=== PATIENT | male | born 1945 | race Caucasian/White ===

== ENCOUNTER 2020-02-24 10:01 | Outpatient (CLI) | payer MEDICARE, MEDICAID, SELFPAY ==
[2020-02-24 10:39] LABS: Hematocrit 44.2 % (42.0-52.0); Hemoglobin 15.4 g/dL (14.0-18.0)
[2020-02-24 11:19] LABS: Free T4 Free Thyroxine 1.13 ng/mL (0.78-2.19)
[2020-02-28 13:59] LABS: Testosterone Free 69.1 pg/mL (30.0-135.0); Testosterone Total 832 ng/dL (250-1100)
== END 2020-02-24 10:02 | disposition home or self-care (01) ==
PROVIDERS: PCP Family Medicine; Visit Provider Internal Medicine Endocrinology, Diabetes & Metabolism
DX: E03.9 Hypothyroidism, unspecified (principal); R10.9 Unspecified abdominal pain; R14.0 Abdominal distension (gaseous); E04.9 Nontoxic goiter, unspecified
CPT/HCPCS: 36415; 84402; 84403; 84439; 84443; 84481; 85014; 85018

== ENCOUNTER 2021-03-18 11:20 | Outpatient (CLI) | payer MEDICARE, MEDICAID, SELFPAY ==
[2021-03-22 16:09] LABS: Testosterone Free 58.5 pg/mL (6.0-73.0); Testosterone Total 862 ng/dL (250-1100)
== END 2021-03-18 11:21 | disposition home or self-care (01) ==
LOC: ANHWCLAB 11:26
PROVIDERS: PCP Family Medicine; Visit Provider Internal Medicine Endocrinology, Diabetes & Metabolism
DX: E03.9 Hypothyroidism, unspecified (principal)
CPT/HCPCS: 36415; 84402; 84403; 84443

== ENCOUNTER 2021-10-05 11:30 | Outpatient (CLI) | payer MEDICARE, MEDICAID, SELFPAY ==
[2021-10-05 13:07] LABS: Hematocrit 43.2 % (42.0-52.0); Hemoglobin 14.4 g/dL (14.0-18.0)
[2021-10-05 13:24] LABS: Free T4 Free Thyroxine 1.63 ng/mL (0.78-2.19)
[2021-10-05 13:38] LABS: Prostate Specific Antigen 0.7 ng/mL (< OR = 4.0)
[2021-10-10 11:49] LABS: Testosterone Free 33.5 pg/mL (6.0-73.0); Testosterone Total 480 ng/dL (250-1100)
== END 2021-10-05 11:31 | disposition home or self-care (01) ==
PROVIDERS: PCP Family Medicine; Visit Provider Internal Medicine Endocrinology, Diabetes & Metabolism
DX: E29.1 Testicular hypofunction (principal); E03.9 Hypothyroidism, unspecified; Z12.5 Encounter for screening for malignant neoplasm of prostate
CPT/HCPCS: 36415; 84153; 84402; 84403; 84439; 84443; 85014; 85018; G0103

== ENCOUNTER 2022-07-30 20:34 | Observation (INO) | payer MEDICARE, MEDICAID, SELFPAY ==
[2022-07-30] VITALS (12 sets, daily range): BP systolic 125–149; BP diastolic 62–76; PULSE 68–97; RESP 13–21; TEMP 36.8; O2SAT 96–100
--- NOTE | ~2022-07-30 | CT_ITS ---
EXAMINATION: CTA brain carotid DATE: 07/31/2022 01:05 INDICATION: Pulsatile tinnitus. TECHNIQUE: Computed tomographic angiography (CTA) of the head was performed without and with 100 mL O mnipaque-350 intravenous contrast. CTA of the neck was performed with intravenous contrast. Automated exposure control and iterative reconstruction technique were employed. The dose-length product was 1 693.58 mGy-cm. Maximum intensity projection and volume rendered 3D-reconstructions were created by lisa bateman technologist on a separate workstation. COMPARISON: Brain MRI 10/24/2016 FINDINGS: HEAD CTA: There are scattered areas of low attenuation in the cerebral white matter. There is no intr acranial hemorrhage, acute infarction, or abnormal intracranial mass lesion. The ventricles are edi l in size. There is mild mucosal thickening in the paranasal sinuses. The mastoid air cells are edi l. The orbits are normal. The vertebral arteries are codominant. There is no significant stenosis of basilar artery or the posterior cerebral arteries. There is no significant stenosis of the intracrani al internal carotid arteries or anterior or middle cerebral arteries. Anterior communicating artery i s normal. The posterior communicating arteries are normal. There is no aneurysm. NECK CTA: The lungs demonstrate septal thickening and airspace and groundglass opacities bilaterally. There is no significant stenosis of the vertebral arteries. There is plaque in the proximal internal carotid arteries. There is undulation of the al of right internal carotid artery, consistent with fibromuscular dysplasia. There is 0% stenosis of the proximal right internal carotid artery relative to normal distal artery lumen diameter (NASCET criteria). There is 0% stenosis of the proximal left internal carotid artery relative to normal distal artery lumen diameter. There is severe cervical spo ndylosis. IMPRESSION: 1. Moderate nonspecific cerebral white matter disease, which likely represents chronic small vessel i schemic disease. 2. No aneurysm or significant intracranial internal stenosis. 3. 0% stenosis of the proximal internal carotid arteries relative to normal distal artery lumen diame ters (NASCET criteria). 4. Diffuse lung disease in the visualized portions of the lung apices, consistent with pulmonary nate a versus pneumonia. Reviewed, dictated and finalized at location A. TING MACHINE OPERATOR IMPRESSION: 1. Moderate nonspecific cerebral white matter disease, which likely represents chronic small vessel ischemic disease. 2. No aneurysm or significant intracranial internal stenosis. 3. 0% stenosis of the proximal internal carotid arteries relative to normal dis valarie artery lumen diameters (NASCET criteria). 4. Diffuse lung disease in the visualized portions of the lung apices, consiste nt with pulmonary edema versus pneumonia.
--- NOTE | ~2022-07-30 | XR_ITS ---
EXAMINATION: XR chest 1V portable Exam Date/Time: 07/30/2022 22:54 LITERARY AGENT HISTORY: palpitations Comparison: None available. RESULT: Lines, tubes, and devices: None. Lungs and pleura: Increased diffuse reticular opacities, overlying chronic senescent and/or intersti tial change. Cardiomediastinal silhouette: Stable. Other: No acute osseous or upper abdominal finding. IMPRESSION: Worsening reticular/interstitial opacities may be related to interstitial edema or atypical infection . Reviewed, dictated and finalized at location K. RARY AGENT IMPRESSION: Worsening reticular/interstitial opacities may be related to interstitial edema or atypical infection.
--- NOTE | 2022-07-30 22:52 | ECG_ITS ---
Measurements Intervals [place] Rate: 72 P: 13 VA: 190 QRS: -5 QRSD: 91 T: 7 QT: 396 QTc: 436 Interpretive Statements SINUS RHYTHM EARLY PRECORDIAL R/S TRANSITION VOLTAGE CRITERIA FOR LVH BORDERLINE ECG COMPARED TO ECG 02/05/2019 09:48:31 NO SIGNIFICANT CHANGES Electronically Signed On 07-31-2022 9:10:35 OWNER MANAGER by Raj Gomez D.O.
--- NOTE | 2022-07-30 22:54 | ED.EAR ---
HPI - Ear Problem General Chief complaint: Ear Stated complaint: right ear pain Time Seen by Provider: 07/30/22 22:39 History of Present Illness HPI Narrative: Patient is a 76-year-old male with a history of hypertension, hypothyroidism, hyperlipidemia presenting with pulsatile tinnitus. Patient states that for the last several weeks he has had episodes of pulsatile tinnitus that have been happening more frequently. States that tonight the pounding was stronger than ever and his heart was racing so he came in for evaluation. He denies chest pain, shortness of breath, lightheadedness, numbness or weakness, speech changes, ambulatory difficulties. No headache, fevers, cough, abdominal pain, nausea or vomiting, leg swelling. Related Data Home Medications Medication Instructions Recorded Confirmed aspirin 81 mg tablet,delayed 81 mg PO DAILY 08/21/19 07/31/22 release (Adult Aspirin Regimen) metoprolol succinate 25 mg 25 mg PO BID 08/21/19 07/31/22 tablet,extended release 24 hr atorvastatin 10 mg tablet 40 mg PO DAILY 02/24/20 07/31/22 olmesartan 40 1 tablet PO DAILY 07/31/22 07/31/22 mg-hydrochlorothiazide 25 mg tablet Allergies Allergy/AdvReac Type Severity Reaction Status Date / Time erythromycin base Allergy Unknown rapid Verified 07/30/22 22:17 heartbeat epinephrine Allergy Heart rythm Verified 07/30/22 22:17 Review of Systems Review of Systems: All systems reviewed & are unremarkable except as noted in HPI and below PMFSH Past Medical History Medical History HLD (hyperlipidemia) HTN (hypertension) Hypogonadism Hypothyroidism (acquired) Pulsatile tinnitus Sinusitis Family History Family History Other Carcinoma of colon Cerebrovascular accident Diabetes mellitus Family history of arthritis Family history of blood dyscrasia Family history of cardiovascular disease Family history of congestive heart failure Family history of glaucoma Family history of lung disease Hypertension Social History Social History (Updated 07/31/22 @ 14:03 by ROSSANA Lambert) Social History: Patient currently lives by himself. Patient has no kids or pets at this time. He elects his me share old to be his surrogate and he wishes to be a full code at this time Smoking status: Never smoker Alcohol intake: never Substance use: never Lack of Transportation: No Lack of Food: Never True Current Housing: I Have Housing Concerned About Future Housing: No Difficulty Paying Gas/Electric Bills: No Difficulty Paying for Meds: No Currently Unemployed: No Education: High School Diploma/GED Difficulty w/ Childcare or Family Care: No Living arrangements: alone Occupation/Education: retired Additional occupation/education comments: [employer] Gender identity (if verbalized by the patient): Male Sexual Orientation (if Verbalized by the Patient): Straight or Heterosexual Spiritual care concerns: No Agree to blood products: Yes Exam Narrative: GENERAL: Well-appearing, well-nourished, and in no acute distress. HEAD: Normocephalic, atraumatic. EYES: PERRLA and EOMI. ENT: Nares clear, no rhinorrhea or epistaxis. Mucous membranes moist. Ears are unremarkable NECK: Supple. CHEST: Clear to auscultation. No respiratory distress. HEART: Regular rate and rhythm. No murmur heard. Normal peripheral pulses. ABDOMEN: Soft, nontender, nondistended, normal active bowel sounds. EXTREMITIES: Normal range of motion. No edema. SKIN: Warm, dry, no rash. NEURO: No focal deficits. Alert and oriented x3. PSYCH: Normal mood and affect. Course Vital Signs Vital signs: Vital Signs Temperature 98.3 F 07/30/22 20:37 Pulse Rate 97 07/30/22 20:37 Respiratory Rate 16 07/30/22 20:37 Blood Pressure 149/76 H 07/30/22 20:37 Pulse Oximetry 98 07/30/22 20:37 Temperat
--- NOTE | 2022-07-30 23:00 | PC.NURSE ---
Report received from ROMINA Guerra. Assumed care of patient at this time.
[2022-07-30 23:06] LABS: Basophils Absolute Auto 0.1 K/mm3 (0.0-0.1); Basophils Percent Auto 0.6 % (0.2-1.2); Eosinophils Absolute Auto 0.1 K/mm3 (0-0.3); Eosinophils Percent Auto 1.5 % (0-4.4); Hematocrit 40.4 % (42.0-52.0); Hemoglobin 14.1 g/dL (14.0-18.0); Immature Granulocyte Absolute 0.02 K/mm3 (0.00-0.031); Immature Granulocyte Percent A 0.2 % (0-0.5); Lymphocytes Absolute Auto 1.41 K/mm3 (0.9-3.2); Lymphocytes Percent Auto 16.6 % (18.3-44.2); Mean Corpuscular HGB Conc 34.9 g/dl (32-36); Mean Corpuscular Hemoglobin 32.6 pg (26-34); Mean Corpuscular Volume 93.5 fl (80-100); Mean Platelet Volume 10.4 fl (7.4-10.4); Monocytes Percent Auto 11.2 % (2.6-8.5); Neutrophils Absolute Auto 5.9 K/mm3 (1.3-6.7); Neutrophils Percent Auto 69.9 % (45.5-73.1); Platelet Count Result 221 k/mm3 (150-375); Red Blood Count 4.32 M/mm3 (4.6-6.20); Red Cell Distribution Width 11.6 % (11.5-14.5); White Blood Count 8.5 K/mm3 (4.5-10.0)
[2022-07-30 23:15] LABS: Alanine Aminotransferase 37 U/L (6-50); Albumin Level 4.6 g/dL (3.5-5.1); Alkaline Phosphatase 55 U/L (38-126); Anion Gap 11 mmol/L (8-16); Aspartate Amino Transferase 40 U/L (17-59); Blood Urea Nitrogen 37 mg/dL (9-20); Calcium 8.7 mg/dL (8.4-10.2); Carbon Dioxide 27 mmol/L (22-30); Chloride 103 mmol/L (98-107); Estimated CRCL calculation 41 ml/min; Estimated Glomerular Filt Rate 53; Glucose 109 mg/dL (65-110); Potassium 4.1 mmol/L (3.4-5.0); Sodium 141 mmol/L (137-145)
[2022-07-30 23:27] LABS: Troponin I 0.016 ng/mL (0.000-0.034)
[2022-07-31] VITALS (48 sets, daily range): BP systolic 114–145; BP diastolic 62–87; PULSE 58–82; RESP 12–26; TEMP 36.6–36.7; O2SAT 94–100; BMI 30.4
[2022-07-31] MEDS: SODIUM CHLORIDE 0.9% IV 1,000 ML 999 ML IV CONT (00:52)
[2022-07-31 05:52] LABS: Troponin I 0.022 ng/mL (0.000-0.034)
[2022-07-31 07:04] LABS: CRP < 0.5 mg/dL (<1.0)
[2022-07-31 07:21] LABS: Erythrocyte Sedimentation Rate 32 mm/hr (0-20)
[2022-07-31 07:22] LABS: Influenza A QL RT-PCR Negative (Negative); Influenza B QL RT-PCR Negative (Negative); SARS-CoV-2 RNA PCR Negative
--- NOTE | 2022-07-31 09:03 | PC.NURSE ---
This patient, Davey Echevarria, was admitted to Medical Room 260-01. Patient/family oriented to hospital policies and general routines including ID bracelet, bed and alarms, visiting hours, pain management, procedures, bathroom and other care routines, personal items, smoking policy, room service/diet, and visiting hours. Information on how to activate the Rapid Response Team has been discussed. Patient/Family are encouraged to report perceived risks to care and to ask questions if they do not understand what they are told or what they should do.
--- NOTE | 2022-07-31 11:15 | PM.SD2 ---
Same Day Admit/Disch: HPI History of Present Illness Chief complaint: Palpitations Narrative: Davey Echevarria is a 76 year old male with past medical history hyperlipidemia, hypertension, hypothyroidism who presented to the ED with complaints palpitations and pulsatile tinnitus. Patient stated that he was awoke from his sleep with his heart racing and his heart rate was only 99 but his tinnitus was greater. He stated the drumming was louder than normal. Patient stated that over the last while every 4 months he gets into an irregular heartbeat. He cannot describe the heartbeat only it seems to be more like palpitations. Last couple weeks he stated that his heart rate has been about 100 and his denies has been louder than normal. He stated that he came into the hospital because he felt like he was at risk for a stroke. Patient did some research online and it showed that pulsatile tinnitus is a preindicator of a stroke. Patient denies any recent illnesses or upper respiratory infections. Patient did state that he made an appointment with ENT however was a month and half out. Patient also stated that he sometimes have a has a cough which is related to the sinus problems because he sucks it into his airway and coughs it out. He also stated that he gets short of breath especially with walking a few blocks. He currently denies any chest pain, nausea, vomiting, diarrhea, constipation, weakness, fatigue, sweats, fever, chills, lightheadedness, dizziness, falls. He reiterated that he only has issues with an irregular heartbeat. He also stated that he does monitor his blood pressure however he cannot tell me what his blood pressure is normally. Patient was also requesting an echo however I explained to him that he would need an outpatient referral from his primary care provider which he has an appointment with on Monday. Patient was admitted to the hospital service under observation [facility] Past Medical History Medical History HLD (hyperlipidemia) HTN (hypertension) Hypogonadism Hypothyroidism (acquired) Pulsatile tinnitus Sinusitis Family History Family History Other Carcinoma of colon Cerebrovascular accident Diabetes mellitus Family history of arthritis Family history of blood dyscrasia Family history of cardiovascular disease Family history of congestive heart failure Family history of glaucoma Family history of lung disease Hypertension Social History Social History (Updated 07/31/22 @ 14:03 by ROSSANA Lambert) Social History: Patient currently lives by himself. Patient has no kids or pets at this time. He elects his me share old to be his surrogate and he wishes to be a full code at this time Smoking status: Never smoker Alcohol intake: never Substance use: never Lack of Transportation: No Lack of Food: Never True Current Housing: I Have Housing Concerned About Future Housing: No Difficulty Paying Gas/Electric Bills: No Difficulty Paying for Meds: No Currently Unemployed: No Education: High School Diploma/GED Difficulty w/ Childcare or Family Care: No Living arrangements: alone Occupation/Education: retired Additional occupation/education comments: [employer] Gender identity (if verbalized by the patient): Male Sexual Orientation (if Verbalized by the Patient): Straight or Heterosexual Spiritual care concerns: No Agree to blood products: Yes Same Day Admit/Disch: Med Pre-admit Medications Home Medications Medication Instructions Recorded Confirmed Type aspirin 81 mg tablet,delayed 81 mg PO DAILY 08/21/19 07/31/22 History release (Adult Aspirin Regimen) metoprolol succinate 25 mg 25 mg PO BID 08/21/19 07/31/22 History tablet,extended release 24 hr atorvastatin 10 mg tablet 40 mg PO DAILY 02/24/20 07/31/22 History ergocalciferol (vitamin D2) 1,250 1
[2022-07-31] MEDS: hydroCHLOROthiazide 25 MG TABLET PO (12:39)
[2022-07-31] MEDS: OLMESARTAN MEDOXOMIL 20 MG TABLET 40 MG PO (12:39)
[2022-07-31] MEDS: ATORVASTATIN 40 MG TABLET PO (12:40)
[2022-07-31] MEDS: ASPIRIN 81 MG ENTERIC TABLET PO (12:40)
[2022-07-31] MEDS: ERGOCALCIFEROL 50,000 UNITS CAPSULE 50000 UNITS PO (12:40)
[2022-07-31] MEDS: METOPROLOL TARTRATE 25 MG TABLET PO (12:40)
[2022-07-31] MEDS: AMOXICILLIN/CLAVULANATE K 875-125 MG TAB 1 TABLET PO (14:38)
[2022-07-31] MEDS: OFLOXACIN 0.3% OPHTH SOLN 5 ML BTL 5 DROP RIGHT EAR (14:38)
== END 2022-07-31 15:27 | disposition home or self-care (01) ==
LOC: ANHED 22:39 → ANH2MED 07-31 14:13
PROVIDERS: Admitting Provider Internal Medicine; Emergency Provider Emergency Medicine; PCP Family Medicine; Visit Provider Family Medicine
DX: H93.A9 Pulsatile tinnitus, unspecified ear (principal); R00.2 Palpitations; I10 Essential (primary) hypertension; E03.9 Hypothyroidism, unspecified; E78.5 Hyperlipidemia, unspecified; J32.9 Chronic sinusitis, unspecified; R90.82 White matter disease, unspecified; R91.8 Other nonspecific abnormal finding of lung field; G31.89 Other specified degenerative diseases of nervous system; Z20.822 Contact with and (suspected) exposure to COVID-19; Z79.82 Long term (current) use of aspirin; Z79.899 Other long term (current) drug therapy; Z82.49 Family history of ischemic heart disease and other diseases of the circulatory system
CPT/HCPCS: 36415; 70496; 70498; 71045; 80053; 83735; 84484; 85025; 85652; 86140; 87636; 93005; 96360; 99285; A9270; G0378; J7030; Q9967

== ENCOUNTER 2022-12-21 08:48 | Outpatient (CLI) | payer MEDICARE, MEDICAID, SELFPAY ==
[2022-12-21 16:38] LABS: Hematocrit 40.6 % (42.0-52.0); Hemoglobin 13.5 g/dL (14.0-18.0); Mean Corpuscular HGB Conc 33.3 g/dl (32-36); Mean Corpuscular Volume 96.2 fl (80-100); Mean Platelet Volume 11.6 fl (7.4-10.4); Platelet Count Result 213 k/mm3 (150-375); Red Blood Count 4.22 M/mm3 (4.6-6.20); Red Cell Distribution Width 12.4 % (11.5-14.5); White Blood Count 7.1 K/mm3 (4.5-10.0)
[2022-12-21 16:43] LABS: Anion Gap 6 mmol/L (8-16); Blood Urea Nitrogen 22 mg/dL (9-20); Carbon Dioxide 31 mmol/L (22-30); Chloride 101 mmol/L (98-107); Estimated Glomerular Filt Rate > 60; Glucose 71 mg/dL (65-110); Potassium 3.8 mmol/L (3.4-5.0); Sodium 138 mmol/L (137-145)
[2022-12-21 17:01] LABS: Free T4 Free Thyroxine 1.39 ng/mL (0.78-2.19)
[2022-12-21 17:14] LABS: Prostate Specific Antigen 0.4 ng/mL (< OR = 4.0)
[2022-12-26 12:19] LABS: Testosterone Free 14.7 pg/mL (6.0-73.0); Testosterone Total 223 ng/dL (250-1100)
== END 2022-12-21 08:49 | disposition home or self-care (01) ==
LOC: ANHWCLAB 08:51
PROVIDERS: PCP Family Medicine; Visit Provider Internal Medicine Endocrinology, Diabetes & Metabolism
DX: E03.9 Hypothyroidism, unspecified (principal); Z12.5 Encounter for screening for malignant neoplasm of prostate
CPT/HCPCS: 36415; 80048; 84153; 84402; 84403; 84439; 84443; 85027; G0103

== ENCOUNTER 2023-01-20 12:31 | Outpatient (CLI) | payer MEDICARE, MEDICAID, SELFPAY ==
[2023-01-27 10:53] LABS: Testosterone Total 442 ng/dL (250-1100)
[2023-01-27 11:04] LABS: Testosterone Free 28.8 pg/mL (6.0-73.0)
== END 2023-01-20 12:32 | disposition home or self-care (01) ==
LOC: ANHLAB 12:33
PROVIDERS: PCP Family Medicine; Visit Provider Internal Medicine Endocrinology, Diabetes & Metabolism
DX: E03.9 Hypothyroidism, unspecified (principal)
CPT/HCPCS: 36415; 84402; 84403

== ENCOUNTER 2023-05-29 09:30 | Outpatient (CLI) | payer MEDICARE, MEDICAID, SELFPAY ==
--- NOTE | ~2023-05-29 | US_ITS ---
US renal BI 05/29/2023 10:17 Procedure: Realtime transabdominal ultrasound of the kidneys and bladder. Indication: Abnormal urinalysis Comparison: No prior studies for comparison. Findings: Renal echotexture is normal bilaterally without hydronephrosis, contour deforming mass or r enal calculus. The right kidney measures 9.3 cm and left kidney measures 10.7 cm. Bladder within nor mal limits. Impression: 1: Unremarkable renal ultrasound. No stones, masses or hydronephrosis. Reviewed, dictated and finalized at location B. Impression: 1: Unremarkable renal ultrasound. No stones, masses or hydronephrosis.
[2023-05-29 11:23] LABS: Appearance Urine Clear (Clear); Bilirubin Urine Negative (Negative); Blood Urine Negative (Negative); Color Urine Yellow (Yellow); Glucose Urine UA Negative (Negative); Ketones Urine Negative (Negative); Leukocyte Esterase Ur Negative LEU/UL (Negative); Nitrate Urine Negative (Negative); Protein Urine Negative (Negative); Specific Grav Ur 1.008 (1.001-1.035); Urobilinogen Urine 0.2 mg/dL (<2.0)
[2023-05-29 11:29] LABS: Creatinine Urine 62.7 mg/dL; Total Protein Urine Random 11 mg/dL; Ur Ttl Prot Creatinine Ratio 0.18 mg/mg (0-0.20)
[2023-05-29 11:38] LABS: Add Urine Microscopic? NO
[2023-05-29 11:42] LABS: Albumin Level 4.9 g/dL (3.5-5.1); Anion Gap 7 mmol/L (8-16); Blood Urea Nitrogen 22 mg/dL (9-20); Calcium 9.3 mg/dL (8.4-10.2); Carbon Dioxide 31 mmol/L (22-30); Chloride 100 mmol/L (98-107); Estimated Glomerular Filt Rate > 60; Glucose 105 mg/dL (65-110); Potassium 4.2 mmol/L (3.4-5.0); Sodium 138 mmol/L (137-145)
[2023-05-29 11:45] LABS: Complement C3 112 mg/dL (88-165)
[2023-05-31 15:57] LABS: Albumin 4.3 g/dL (3.8-4.8); Alpha 1 Globulin 0.3 g/dL (0.2-0.3); Alpha 2 Globulin 0.8 g/dL (0.5-0.9); Beta 1 Globulin 0.5 g/dL (0.4-0.6); Gamma Globulin 1.3 g/dL (0.8-1.7); Protein, Total 7.7 g/dL (6.1-8.1)
[2023-06-01 13:43] LABS: Anti Nuclear Antibody Pattern Nuclear, Speckled
[2023-06-01 18:54] LABS: Anti Glomerular Basement Memb <1.0 AI (<1.0)
[2023-06-02 00:35] LABS: Kappa\\Lambda Light Chains 1.53 (0.26-1.65); Lambda Light Chain 25.1 mg/L (5.7-26.3)
[2023-06-02 21:14] LABS: ANCA Screen Negative (Negative)
[2023-06-03 00:28] LABS: Creatinine, Random Urine 67 mg/dL (20-320); Total Protein/Creatinine Ratio 75 mg/g creat (25-148)
== END 2023-05-29 09:31 | disposition home or self-care (01) ==
PROVIDERS: PCP Family Medicine; Visit Provider Internal Medicine Nephrology
DX: R82.998 Other abnormal findings in urine (principal)
CPT/HCPCS: 36415; 76775; 80069; 81003; 82570; 83520; 83883; 84155; 84156; 84165; 84166; 86036; 86038; 86039; 86160; 86225

== ENCOUNTER 2023-06-29 01:36 | Observation (INO) | payer MEDICARE, MEDICAID, SELFPAY ==
[2023-06-29] VITALS (15 sets, daily range): BP systolic 102–142; BP diastolic 51–111; PULSE 60–164; RESP 15–24; TEMP 36.1–37.1; O2SAT 96–99; BMI 27.7
--- NOTE | 2023-06-29 | EST_ITS ---
Patient Info Name: Davey Echevarria Age: 77 years : 1945 Gender: Male Ht: 68 in Wt: 182 lbs BSA: 2.01 m2 HR: 69 bpm BP: 133 / 73 mmHg Exam Date: 06/29/2023 2:56 PM Exam Location: [facility] Stress Patient Status: Inpatient Admit Date: 06/29/2023 Staff Ordering Physician: Ammon Delaney MD Attending Provider: January Zamudio MD Exercise Technologist: Nubia Zamora CT Nurse: Itzel Merino APN Exam Type: CA stress octavia w NM Study Info A regadenoson stress test was performed. Summary 1. No abnormal ST-T wave changes with lexiscan. 2. Nuclear test results to follow. Protocol: Lexiscan Stress ECG Details Stage: REST Duration (min): 1 min : 23 sec HR (bpm): 69 SBP (mmHg): 133 DBP (mmHg): 73 Stage: REST Duration (min): 8 min : 49 sec HR (bpm): 68 SBP (mmHg): 133 DBP (mmHg): 73 Stage: STAGE 1 Duration (min): 1 min : 0 sec HR (bpm): 79 SBP (mmHg): 129 DBP (mmHg): 74 Stage: RECOVERY Duration (min): 1 min : 0 sec HR (bpm): 88 SBP (mmHg): 129 DBP (mmHg): 74 Stage: RECOVERY Duration (min): 2 min : 0 sec HR (bpm): 90 SBP (mmHg): 129 DBP (mmHg): 74 Stage: RECOVERY Duration (min): 3 min : 0 sec HR (bpm): 89 SBP (mmHg): 131 DBP (mmHg): 74 Stage: RECOVERY Duration (min): 3 min : 7 sec HR (bpm): 89 SBP (mmHg): 131 DBP (mmHg): 74 Rest HR: 68 bpm Peak HR: 91 bpm Rest Sys BP: 133 mmHg Peak Sys BP: 131 mmHg Max Pred HR: 141 bpm % Max Pred HR: 65 % Target HR: 120 bpm Max RPP: 11,921 bpm*mmHg BP Response: Normal blood pressure response Termination Reason: Completed protocol Cardiac Symptoms: None Total Time: 1 min : 0 sec Rest Glover BP: 73 mmHg Peak Glover BP: 74 mmHg Total Dose: 0.4 mg Resting ECG Normal sinus rhythm - normal ECG. Stress ECG No abnormal ST/T wave changes with exercise. Arrhythmias None. Report Signatures
--- NOTE | ~2023-06-29 | NM_ITS ---
EXAMINATION: NM octavia stress w perfusion DATE: 06/29/2023 16:07 INDICATION: New onset atrial fibrillation. EKG changes. TECHNIQUE: Rest images were obtained following intravenous administration of 10.5 mCi Tc99m tetrofosm in (Myoview). The patient was infused intravenously with Lexiscan (Regadenoson). Then, 33.9 mCi Tc99m tetrofosmin (Myoview) was administered intravenously, and stress images were obtained initially in s upine position with repeat post stress prone imaging. Data was reconstructed into short axis and hori zontal and vertical long axis SPECT images. Gated SPECT images were also obtained. COMPARISON: None. FINDINGS: There is no definite reversible or fixed perfusion abnormality to suggest ischemia or infar ction. There is normal left ventricular chamber size, wall motion and ejection fraction. Left ventr icular ejection fraction measures >70%. IMPRESSION: 1. Normal myocardial perfusion at rest and during stress. 2. Left ventricular ejection fraction measuring >70%. Reviewed, dictated and finalized at location A.
--- NOTE | ~2023-06-29 | XR_ITS ---
EXAMINATION: XR chest 1V portable DATE: 06/29/2023 02:20 INDICATION: Arrhythmia. TECHNIQUE: A single frontal view of the chest was obtained. COMPARISON: Chest single view 07/30/2022, CT abdomen and pelvis 06/17/2016 FINDINGS: The lung volumes are normal. There is a diffuse coarse interstitial pattern in the lungs. N o pleural effusion or pneumothorax. The heart size is normal. IMPRESSION: 1. Stable chronic interstitial lung disease. Reviewed, dictated and finalized at location E.
--- NOTE | ~2023-06-29 | US_ITS ---
EXAMINATION:US venous doppler LE BI INDICATION:Positive d-dimer TECHNIQUE: Multiple grayscale, color flow and Doppler images of the right and left lower extremity de ep venous systems were obtained and reviewed. COMPARISON:No prior studies for comparison. FINDINGS: The common femoral, superficial femoral and popliteal veins demonstrate normal respiratory variation, augmentation and compressibility. Color flow is also seen within the posterior tibial, pe roneal, greater saphenous and profunda veins. IMPRESSION: 1: No lower extremity deep venous thrombosis. Reviewed, dictated and finalized at location L.
--- NOTE | 2023-06-29 01:40 | ECG_ITS ---
Measurements Intervals [place] Rate: 150 P: VA: 0 QRS: 8 QRSD: 94 T: 172 QT: 242 QTc: 383 Interpretive Statements ATRIAL FIBRILLATION WITH RAPID VENTRICULAR RESPONSE ST DEVIATION AND MODERATE T-WAVE ABNORMALITY, CONSIDER LATERAL ISCHEMIA [-0.1+ mV T WAVE IN I/aVL/V5/V6] COMPARED TO ECG 07/30/2022 22:58:24 ATRIAL FIBRILLATION NOW PRESENT Electronically Signed On 06-29-2023 12:57:05 CDT by Joanna Rodas M.D.
--- NOTE | 2023-06-29 01:54 | ED.SOB ---
HPI - SOB/Dyspnea General Chief Complaint: Shortness of Breath/Dyspnea Stated Complaint: afib rvr Time Seen by Provider: 06/29/23 01:37 Source: patient Limitations: no limitations History of Present Illness HPI Narrative: Patient is a 77-year-old male present to the emergency department complaining of palpitations. Patient states he started noticing the palpitations around approximately 6 PM while at rest in the have gone away prompting him to seek further evaluation. Patient admits to history of palpitations many times in the past for which she has never received any formal diagnosis and denies any use of blood thinners or history of atrial fibrillation, notes that he usually gets that every couple months and it goes away on its own and because it did not go away today he sought further evaluation. Patient admits to some mild left chest fullness that is nonradiating and is associated with this in addition to associated dyspnea. Patient denies any new or changed medications or recent injuries or recent illness. Patient denies fever, abdominal pain, nausea, vomiting, cough, unilateral lower extremity swelling, rash, dysuria, hematuria, urinary frequency, urinary urgency, numbness, weakness. Patient has a history of thyroid dysfunction. Patient denies any history of alcohol use. Patient denies any changes in caffeine intake. Patient denies history of heart disease. Related Data Home Medications Medication Instructions Recorded Confirmed metoprolol succinate 25 mg 25 mg PO BID 08/21/19 06/08/23 tablet,extended release 24 hr atorvastatin 10 mg tablet 40 mg PO DAILY 02/24/20 06/08/23 olmesartan 40 1 tablet PO DAILY 07/31/22 06/08/23 mg-hydrochlorothiazide 25 mg tablet Allergies Allergy/AdvReac Type Severity Reaction Status Date / Time erythromycin base Allergy Unknown rapid Verified 06/08/23 08:54 heartbeat epinephrine Allergy Heart rythm Verified 06/08/23 08:54 Review of Systems Review of Systems: A 10 system review of systems was completed on the patient and is negative except for what is stated in the HPI. Nursing and ancillary documentation was reviewed. [facility] Past Medical History Medical History HLD (hyperlipidemia) HTN (hypertension) Hypogonadism Hypothyroidism (acquired) Pulsatile tinnitus Sinusitis Family History Family History Other Carcinoma of colon Cerebrovascular accident Diabetes mellitus Family history of arthritis Family history of blood dyscrasia Family history of cardiovascular disease Family history of congestive heart failure Family history of glaucoma Family history of lung disease Hypertension Social History Social History Social History: Patient currently lives by himself. Patient has no kids or pets at this time. He elects his me share old to be his surrogate and he wishes to be a full code at this time Caffeine-none Smoking status: Never smoker Alcohol intake: never Substance use: never Lack of Transportation: No Lack of Food: Never True Current Housing: I Have Housing Concerned About Future Housing: No Difficulty Paying Gas/Electric Bills: No Difficulty Paying for Meds: No Currently Unemployed: No Education: High School Diploma/GED Difficulty w/ Childcare or Family Care: No Living arrangements: alone Occupation/Education: retired Additional occupation/education comments: [employer] Gender identity (if verbalized by the patient): Male Sexual Orientation (if Verbalized by the Patient): Straight or Heterosexual Spiritual care concerns: No Agree to blood products: Yes Comments At time of signature, I have reviewed and agree with nursing past medical, surgical, social and family history unless otherwise noted. Please see the nursing chart for further information. Ther
[2023-06-29 02:08] LABS: Basophils Absolute Auto 0.1 K/mm3 (0.0-0.1); Basophils Percent Auto 1.3 % (0.2-1.2); Eosinophils Absolute Auto 0.3 K/mm3 (0-0.3); Hematocrit 46.1 % (42.0-52.0); Hemoglobin 15.4 g/dL (14.0-18.0); Immature Granulocyte Absolute 0.02 K/mm3 (0.00-0.031); Immature Granulocyte Percent A 0.3 % (0-0.5); Lymphocytes Absolute Auto 2.82 K/mm3 (0.9-3.2); Mean Corpuscular HGB Conc 33.4 g/dl (32-36); Mean Corpuscular Hemoglobin 31.3 pg (26-34); Mean Corpuscular Volume 93.7 fl (80-100); Mean Platelet Volume 10.6 fl (7.4-10.4); Monocytes Absolute Auto 0.8 K/mm3 (0.1-0.6); Monocytes Percent Auto 10.6 % (2.6-8.5); Neutrophils Absolute Auto 3.8 K/mm3 (1.3-6.7); Neutrophils Percent Auto 47.8 % (45.5-73.1); Platelet Count Result 257 k/mm3 (150-375); Red Blood Count 4.92 M/mm3 (4.6-6.20); Red Cell Distribution Width 12.3 % (11.5-14.5); White Blood Count 7.8 K/mm3 (4.5-10.0)
[2023-06-29] MEDS: MAGNESIUM SULF 1 GM/D5W 100 ML 1 GM/100 ML BAG IVPB (02:08)
[2023-06-29] MEDS: SODIUM CHLORIDE 0.9% IV 1,000 ML 999 ML IV CONT (02:08)
[2023-06-29 02:29] LABS: INR 1.1; Prothrombin Time 14.4 Seconds (11.1-14.7)
[2023-06-29 02:36] LABS: D Dimer 0.59 ug/mL (<0.48)
[2023-06-29 02:44] LABS: Ethanol < 10 mg/dL (<10)
[2023-06-29 02:47] LABS: Troponin I 0.016 ng/mL (0.000-0.034)
[2023-06-29 02:52] LABS: Alanine Aminotransferase 29 U/L (6-50); Albumin Level 4.4 g/dL (3.5-5.1); Alkaline Phosphatase 70 U/L (38-126); Anion Gap 12 mmol/L (8-16); Aspartate Amino Transferase 36 U/L (17-59); Bilirubin,Total 1.5 mg/dL (0.2-1.3); Blood Urea Nitrogen 24 mg/dL (9-20); Calcium 8.9 mg/dL (8.4-10.2); Carbon Dioxide 27 mmol/L (22-30); Chloride 101 mmol/L (98-107); Estimated CRCL calculation 43 ml/min; Estimated Glomerular Filt Rate 58; Glucose 120 mg/dL (65-110); Lipase 66 U/L (23-300); Magnesium 1.7 mg/dL (1.6-2.3); Potassium 3.3 mmol/L (3.4-5.0); Sodium 140 mmol/L (137-145)
[2023-06-29 03:00] LABS: NT Pro B Type Natriuretic Pept 980 pg/mL (19.9-100)
[2023-06-29 03:46] LABS: Appearance Urine Clear (Clear); Bilirubin Urine Negative (Negative); Blood Urine Negative (Negative); Color Urine Yellow (Yellow); Glucose Urine UA Negative (Negative); Ketones Urine Negative (Negative); Leukocyte Esterase Ur Negative LEU/UL (Negative); Nitrate Urine Negative (Negative); Protein Urine Negative (Negative); Urobilinogen Urine 0.2 mg/dL (<2.0)
[2023-06-29] MEDS: POTASSIUM CHLORIDE 20 MEQ PACKET (FOR LIQUID) 40 MEQ PO (03:49)
[2023-06-29 03:51] LABS: Add Urine Microscopic? NO
[2023-06-29 04:00] LABS: Barbiturate Screen Urine Negative (Negative)
[2023-06-29 04:03] LABS: Benzodiazepines Screen Urine Positive (Negative)
[2023-06-29 04:04] LABS: Amphetamine Screen Urine Negative (Negative); Cannabinoid Screen Urine Negative (Negative); Cocaine Screen Urine Negative (Negative); Methadone Screen Urine Negative (Negative); Opiate Screen Urine Negative (Negative); Phencyclidine Screen Urine Negative (Negative)
[2023-06-29 04:21] LABS: Influenza A QL RT-PCR Negative (Negative); Influenza B QL RT-PCR Negative (Negative); SARS-CoV-2 RNA PCR Negative (Negative)
[2023-06-29] MEDS: dilTIAZem HCl INJ 25 MG/5 ML VIAL 10 MG IV PUSH (04:38)
[2023-06-29] MEDS: ASPIRIN 325 MG TABLET PO (05:01)
[2023-06-29] MEDS: dilTIAZem 100 MG/100 ML 100 MG/100 ML BAG IV CONT (05:01)
--- NOTE | 2023-06-29 05:27 | ECG_ITS ---
Measurements Intervals [place] Rate: 74 P: 6 [place]: 190 QRS: 8 QRSD: 82 T: 26 QT: 382 QTc: 425 Interpretive Statements SINUS RHYTHM COMPARED TO ECG 06/29/2023 01:42:40 SINUS RHYTHM HAS BEEN RESTORED Electronically Signed On 06-29-2023 12:57:17 CDT by Joanna Rodas M.D.
[2023-06-29 06:20] LABS: Troponin I 0.038 ng/mL (0.000-0.034)
--- NOTE | 2023-06-29 06:37 | ADMGEN ---
This patient, Davey Echevarria, was admitted to IMU Room 232-01 at 0637. Patient/family oriented to hospital policies and general routines including ID bracelet, bed and alarms, visiting hours, pain management, procedures, bathroom and other care routines, personal items, smoking policy, room service/diet, and visiting hours. Information on how to activate the Rapid Response Team has been discussed. Patient/Family are encouraged to report perceived risks to care and to ask questions if they do not understand what they are told or what they should do.
[2023-06-29 08:42] LABS: Troponin I 0.035 ng/mL (0.000-0.034)
--- NOTE | 2023-06-29 09:45 | PM.IMHP ---
H&P: HPI History of Present Illness Date/Time: 06/29/23 09:45 Chief Complaint: SOB Narrative: 77yo male with HT, HLD and hypothyroidism here for palpitations and shortness of breath. Patient has had irregular heartbeat the past 3-4 years symptoms usually last 1.5-3 hours denies chest pain but has a funny sensation in his chest. He checks his blood pressure, his machine notice an irregular heartbeat with a rate of 135. Patient no longer drinks caffeine. Patient had a stress test a few years ago which was within normal limits. He had a Holter monitor also few years ago but this did not capture the abnormal rhythm. He had a echocardiogram few months ago to was normal he states. Patient states that he had a CT scan of his chest few years ago which showed some abnormalities although he is not 100% sure of the findings. Over the last few months, he has been having increasing dyspnea on exertion. No chest pain. No arm, jaw, back pain. No calf pain. No recent travel. No pleuritic chest pain. No pedal edema. No history of cancer. No cough. He does have sinus drainage occasional cough from this. No fever or chills. He has been having foamy urine past few months. He was evaluated but there is no protein in the urine. No dysuria or hematuria. He has nocturia x1 which is chronic. His thyroid is well controlled. He does not have diabetes. No history of TIA or stroke. Over the past 10 days patient has had 3 episodes of irregular heartbeat. Heart rate again up into the 130s. The 3rd episode began the day before admission and lasted up to 11 hours which prompted his presentation to the emergency room. He does not take aspirin or anticoagulation. He is on metoprolol. He does have snoring and has woken himself up with snoring but denies any has had apneic episodes that he is aware of. In the ED, heart rate was 164, respiratory rate 24 and blood pressure 142/74. EKG showed atrial fibrillation with RVR and ST depression in the lateral leads. Chest x-ray shows chronic stable interstitial lung disease. D-dimer positive at 0.6. Potassium low at 3.3. BUN 24. Creatinine 1.2. Total bilirubin 1.5. BNP 980. Troponin peaked at 0.038. Patient was given magnesium, aspirin, potassium and IV fluids. Was given a dose of diltiazem. He converted to normal sinus rhythm. Repeat EKG was normal sinus rhythm and no acute ST-T wave changes. He was admitted for further care. No Echo, stress test or Holter monitor reports Review of Systems Review of Systems: All systems reviewed & are unremarkable except as noted in HPI and below [facility] Past Medical History Medical History (Updated 06/29/23 @ 11:28 by Ammon Delaney MD) HLD (hyperlipidemia) HTN (hypertension) Hypogonadism Hypothyroidism (acquired) Interstitial lung disease Pulsatile tinnitus Sinusitis Surgical History Surgical History (Updated 06/29/23 @ 11:24 by Ammon Delaney MD) S/P surgery on nasal septum Family History Family History Other Carcinoma of colon Cerebrovascular accident Diabetes mellitus Family history of arthritis Family history of blood dyscrasia Family history of cardiovascular disease Family history of congestive heart failure Family history of glaucoma Family history of lung disease Hypertension Social History Social History (Updated 06/29/23 @ 11:25 by Ammon Delaney MD) Social History: Patient currently lives by himself. Patient has no children. He is full code. He nominates Romi Scott be the individual who would make decisions for him if he is unable. Lifelong nonsmoker. No alcohol or drug use. Caffeine-none Smoking status: Never smoker Alcohol intake: never Substance use: never Lack of Transportation: No Lack of Food: Never True Current Housing: I Have Housing Concerned About Future Housing: No Difficulty Paying Gas/Electric Bills: No Difficu
--- NOTE | 2023-06-29 12:31 | PM.CNCAR ---
Assessment and Plan Assessment and plan (1) Atrial fibrillation with RVR: Code(s): I48.91 - Unspecified atrial fibrillation <ROSSANA Thacker - Last Filed: 06/29/23 16:29> Status: Acute <ROSSANA Thacker - Last Filed: 06/29/23 16:29> Assessment and Plan: New diagnosis of atrial fibrillation now in sinus rhythm. By his history, sounds like he probably has paroxysmal atrial fibrillation. Continue metoprolol but increase dose to 75 mg daily Discontinue home olmesartan-HCTZ to avoid hypotension with increased beta-yoselin dosage [id number] score 2, anticoagulation is indicated. He has been started on Eliquis 5 mg b.i.d. Check echo ApneaLink tonight TSH normal Stress test has been ordered If stress test is negative, he can be discharged from my perspective follow-up in our office. <ROSSANA Thacker - Last Filed: 06/29/23 16:29> (2) HTN (hypertension): Code(s): I10 - Essential (primary) hypertension <ROSSANA Thacker - Last Filed: 06/29/23 16:29> Status: Acute <ROSSANA Thacker - Last Filed: 06/29/23 16:29> Assessment and Plan: At goal. <ROSSANA Thacker - Last Filed: 06/29/23 16:29> History of Present Illness History of Present Illness Consult date/time: 06/29/23 12:31 <ROSSANA Thacker - Last Filed: 06/29/23 16:29> Requesting physician: Ammon Delaney MD <ROSSANA Thacker - Last Filed: 06/29/23 16:29> Consult reason: atrial fibrillation <ROSSANA Thacker - Last Filed: 06/29/23 16:29> Reason For Visit: atrial fibrillation with rvr <ROSSANA Thacker - Last Filed: 06/29/23 16:29> Narrative: Davey Echevarria is a 77-year-old male with a history of hypertension. He comes to the hospital because of a sensation of a racing, pounding heartbeat. He has experienced this sensation in the past, but his symptoms usually only last a few hours and this time the racing heartbeat lasted for around 11 hours. He states that he wore a Holter monitor several years ago because of the same symptoms but the monitor did not capture any arrhythmias. He denies any chest pain, shortness of breath, swelling, syncope, or presyncope. He does not have any known cardiac history. He was given a diltiazem bolus and placed on a diltiazem drip in the emergency department. He has now converted to sinus rhythm. At the time of my visit with him, he is lying comfortably in bed does not have any complaints. <ROSSANA Thacker - Last Filed: 06/29/23 16:29> Review of Systems Review of Systems: All systems reviewed & are unremarkable except as noted in HPI and below <ROSSANA Thacker - Last Filed: 06/29/23 16:29> [facility] Past Medical History Medical History: Medical History HLD (hyperlipidemia) HTN (hypertension) Hypogonadism Hypothyroidism (acquired) Interstitial lung disease Pulsatile tinnitus Sinusitis <ROSSANA Thacker - Last Filed: 06/29/23 16:29> Surgical History Surgical History: Surgical History S/P surgery on nasal septum <ROSSANA Thacker - Last Filed: 06/29/23 16:29> Family History Family History: Family History Other Carcinoma of colon Cerebrovascular accident Diabetes mellitus Family history of arthritis Family history of blood dyscrasia Family history of cardiovascular disease Family history of congestive heart failure Family history of glaucoma Family history of lung disease Hypertension <ROSSANA Thacker - Last Filed: 06/29/23 16:29> Social History Social History: Social History Social History: Patient currently lives by himself. Patient has no children. He is full code. He nominates Romi Scott be the indivi
[2023-06-29] MEDS: SODIUM CHLORIDE 0.9% IV 1,000 ML 70 ML IV CONT (12:44)
[2023-06-29] MEDS: ATORVASTATIN 40 MG TABLET PO (12:45)
[2023-06-29] MEDS: APIXABAN 5 MG TABLET PO ×2 (12:45→21:31)
[2023-06-29] MEDS: METOPROLOL TARTRATE 25 MG TABLET PO (12:45)
[2023-06-29] MEDS: LEVOTHYROXINE SODIUM 88 MCG TABLET PO (12:46)
[2023-06-30] VITALS (10 sets, daily range): BP systolic 105–152; BP diastolic 58–82; PULSE 56–73; RESP 16–17; TEMP 36.2–36.7; O2SAT 96–99
--- NOTE | 2023-06-30 | ECHO_ITS ---
Patient Info Name: Davey Mobley Best Age: 77 years : 1945 Gender: Male Ht: 68 in Wt: 182 lbs BSA: 2.01 m2 HR: 62 bpm BP: 152 / 67 mmHg Heart Rhythm: Sinus Rhythm Technical Quality: Fair Exam Date: 06/30/2023 7:42 AM Exam Location: [facility] Pulmonary Patient Status: Inpatient Admit Date: 06/29/2023 Staff Ordering Physician: Ammon Delaney MD Shanker Out: Esther Winston RDCS Attending Provider: January Zamudio MD Exam Type: CA echo doppler color flow Study Info Indications - AFIB Complete two-dimensional, color flow and Doppler transthoracic echocardiogram is performed. Summary 1. Complete two-dimensional, color flow and Doppler transthoracic echocardiogram is performed. 2. Normal left ventricular size, systolic function and grade 1 diastolic noncompliance. 3. Mild left atrial enlargement. 4. Trivial amount of mitral regurgitation. 5. Sinus rhythm. Left Ventricle Left ventricular chamber dimension is normal. Left ventricular systolic function is normal, estimated at 60-65%. The left ventricular diastolic function is grade I diastolic dysfunction. Right Ventricle Right ventricular chamber dimension is normal. Left Atria Left atrial chamber dimension is mildly enlarged. Right Atria Right atrial chamber dimension is normal. Aortic Valve The aortic valve is normal. Pulmonic Valve The pulmonic valve is normal. Mitral Valve The mitral valve has normal leaflets. There is trace mitral valve regurgitation. Tricuspid Valve The tricuspid valve leaflets are normal. Pericardium/Pleural The pericardium appears normal. Aorta The aortic root size at the sinus of Valsalva is normal. Left Ventricular Outflow Tract Name Value Normal LVOT 2D LVOT Diameter 2.0 cm LVOT Doppler LVOT Peak Gradient 2 mmHg LVOT Mean Gradient 1 mmHg LVOT VTI 18 cm LVOT VTI/AV VTI Ratio 0.6 LVOT Stroke Volume 55 ml LVOT CO 3.4 l/min LVOT CI 1.7 l/min/m2 Pulmonic Valve Name Value Normal RVOT Doppler RVOT Peak Gradient 2 mmHg PV Doppler PV Peak Gradient 4 mmHg Mitral Valve Name Value Normal MV Doppler MV Decel Sullivan 289 cm/s2 MV PHT 79 ms MV Area (PHT) 2.8 cm2 4.0-5.0 MV Diastolic Function MV E Peak Veloci
[2023-06-30 05:13] LABS: Alveolar/Arterial O2 Gradient 30.2 mmHg; Base Excess ABG -0.2 mEq/l (+/-2.0); Fractional Inspired Oxygen 21 %; Oxygen Content ABG 17.8 %vol (16.0-22.0); Oxygen Saturation ABG 95.2 % (95.0-100.0); Oxyhemoglobin 93.1 % THb (90.0-100.0); PCO2 ABG 37.9 mmHg (35.0-45.0); PO2 ABG 74.1 mmHg (80.0-100.0); PO2 FiO2 Ratio Arterial Blood 3.53 %; Total Hemoglobin 13.6 g/dL (12.0-18.0); pH ABG 7.419 (7.350-7.450)
[2023-06-30 05:39] LABS: Alanine Aminotransferase 24 U/L (6-50); Albumin Level 3.9 g/dL (3.5-5.1); Alkaline Phosphatase 56 U/L (38-126); Anion Gap 7 mmol/L (8-16); Aspartate Amino Transferase 29 U/L (17-59); Bilirubin Indirect 1.7 mg/dL (0-1.1); Bilirubin,Total 1.7 mg/dL (0.2-1.3); Blood Urea Nitrogen 16 mg/dL (9-20); Calcium 8.3 mg/dL (8.4-10.2); Carbon Dioxide 27 mmol/L (22-30); Chloride 105 mmol/L (98-107); Estimated CRCL calculation 51 ml/min; Estimated Glomerular Filt Rate > 60; Glucose 87 mg/dL (65-110); Potassium 3.8 mmol/L (3.4-5.0); Sodium 139 mmol/L (137-145)
[2023-06-30 05:46] LABS: Immunoglobulin A 381 mg/dL (70-400); Immunoglobulin G 984 mg/dL (700-1600); Rheumatoid Factor < 12.0 IU/ML (<12)
[2023-06-30 05:48] LABS: Immunoglobulin M < 25 mg/dL (40-230)
[2023-06-30] MEDS: LEVOTHYROXINE SODIUM 88 MCG TABLET PO (06:17)
[2023-06-30] MEDS: APIXABAN 5 MG TABLET PO (10:09)
[2023-06-30] MEDS: ATORVASTATIN 40 MG TABLET PO (10:10)
[2023-06-30] MEDS: METOPROLOL SUCCINATE EXT REL 25 MG, METOPROLOL SUCCINATE EXT REL 50 MG 75 MG PO (10:10)
[2023-06-30] MEDS: AZELASTINE HCL NASAL 0.1% 137 MCG/SPR 30 ML BTL 1 SPRAY NASAL (10:11)
[2023-06-30] MEDS: SODIUM CHLORIDE 0.9% IV 1,000 ML 70 ML IV CONT (10:12)
--- NOTE | 2023-06-30 14:24 | PM.DS ---
DS: Admitting Diagnosis Discharge Date 06/30/23 Admitting Diagnosis Palpitations and shortness of breath DS: Discharge Diagnosis Discharge Diagnosis (1) Atrial fibrillation with RVR: Code(s): I48.91 - Unspecified atrial fibrillation Status: Acute (2) Interstitial lung disease: Code(s): J84.9 - Interstitial pulmonary disease, unspecified Status: Acute (3) HTN (hypertension): Code(s): I10 - Essential (primary) hypertension Status: Acute (4) HLD (hyperlipidemia): Code(s): E78.5 - Hyperlipidemia, unspecified Status: Acute (5) Hypothyroidism (acquired): Code(s): E03.9 - Hypothyroidism, unspecified Status: Acute DS: Summary Hospital Course Reason for hospitalization: 77yo male with HTN, HLD and hypothyroidism here for palpitations and shortness of breath. Please see H&P for details. Hospital Course: On presentation, heart rate was 164, respiratory rate 24 and blood pressure 142/74.? EKG showed atrial fibrillation with RVR and ST depression in the lateral leads.? Chest x-ray shows chronic stable interstitial lung disease.? D-dimer positive at 0.6.? Potassium low at 3.3.? BUN 24.? Creatinine 1.2.? Total bilirubin 1.5.? BNP 980.? Troponin peaked at 0.038.? Patient was given magnesium, aspirin, potassium and IV fluids.? Was given a dose of diltiazem.? He converted to normal sinus rhythm.? Repeat EKG was normal sinus rhythm and no acute ST-T wave changes.?Lexiscan stress test normal. Echo EF 60-65% with Grade I diastolic dysfunction. Apnea link showing AHI 8.6 and RI 9.2. LE venous doppler negative for DVT. [place] the elevated Trop related to the AFib/RVR. Cardiology consulted. Eliquis added. Care coordination consulted and patient can afford Eliquis. CXR showing chronic ILD. Doubt this is pulmonary edema since no clinical evidence of fluid overload. The patient did not appear to be aware of this. He had an autoimmune workup by the tactical deception plans officer for foamy urine which showed LIZZ 1:80 speckled appearing but otherwise normal testing. He has sinus issues as well. IgA levels okay. RF negative. Plan for patient to follow up with pulmonary for evaluation. Will need evaluation for WILL. Metoprolol advanced. He did well. he maintained NSR. He was able to be discharged home on 06/30/23. Side effects of new medications discussed. Status at Discharge Cognitive/behavioral status at discharge: stable Time Spent with Patient Time attestation: Total time spent providing and/or coordinating discharge services: 35 minutes Time spent: Greater than 30 minutes Exam Narrative: AF 98.0 139/67 70 17 96% ra Gen - NARD Chest - mid and lower lung valle dry inspiratory crackles, nml RR CV - RRR. S1-S2. Tele showing no significant dysrhythmias Abd - soft. NT/ND. Positive bowel sounds. Ext - no pedal edema. Neuro - nonfocal Psych - normal mood and affect. Skin - warm and dry. DS: Data Data Completed and Pending Labs on day of discharge: Labs from last 24 hours 06/30/23 06/30/23 05:08 05:03 Puncture Site Pending ABG pH 7.419 ABG pCO2 37.9 ABG pO2 74.1 L ABG PO2/FiO2 Ratio 3.53 ABG HCO3 24.0 ABG O2 Saturation 95.2 ABG O2 Content 17.8 ABG Base Excess -0.2 A-a Gradient 30.2 Oxyhemoglobin 93.1 Total Hemoglobin 13.6 O2 Delivery Device Pending O2 Liters/Min Pending FiO2 21 Sodium 139 Potassium 3.8 Chloride 105 Carbon Dioxide 27 Anion Gap 7 L BUN 16 Creatinine 1.00 Estim Creat Clear Calc 51 Estimated GFR > 60 Glucose 87 Calcium 8.3 L Total Bilirubin 1.7 H Indirect Bilirubin 1.7 H AST 29 ALT 24 Alkaline Phosphatase 56 Total Protein 7.0 Albumin 3.9 IgG 984 IgA 381 IgM < 25 L Rheumatoid Factor < 12.0 Discharge Plan Discharge Attending physician on discharge: Ammon Delaney Consulting providers: Itzel Merino Discharging Clinician: Ammon Delaney
[2023-07-03 09:18] LABS: Device ROOM AIR
== END 2023-06-30 15:26 | disposition home or self-care (01) ==
LOC: ANHED 05:02 → ANHIMU 06:21
PROVIDERS: Internal Medicine; Admitting Provider Internal Medicine; Emergency Provider Student in an Organized Health Care Education/Training Program; PCP Family Medicine; Visit Provider Internal Medicine
DX: I48.91 Unspecified atrial fibrillation (principal); E78.5 Hyperlipidemia, unspecified; I10 Essential (primary) hypertension; E03.9 Hypothyroidism, unspecified; F41.9 Anxiety disorder, unspecified; R00.0 Tachycardia, unspecified; J84.9 Interstitial pulmonary disease, unspecified; Z20.822 Contact with and (suspected) exposure to COVID-19; H93.A9 Pulsatile tinnitus, unspecified ear; J32.9 Chronic sinusitis, unspecified; Z79.899 Other long term (current) drug therapy; Z82.49 Family history of ischemic heart disease and other diseases of the circulatory system
CPT/HCPCS: 36415; 36600; 71045; 78452; 80053; 80307; 81003; 82784; 82805; 83690; 83735; 83880; 84443; 84484; 85025; 85380; 85610; 85730; 86430; 87636; 93005; 93017; 93306; 93970; 94762; 96361; 96365; 96366; 96367; 99285; A9270; A9502; G0378; J2785; J3475; J7030

== ENCOUNTER 2023-07-04 12:11 | Emergency (ER) | payer MEDICARE, MEDICAID, SELFPAY ==
[2023-07-04] VITALS (12 sets, daily range): BP systolic 101–143; BP diastolic 68–89; PULSE 69–117; RESP 16–18; TEMP 36.2–36.4; O2SAT 98–100
--- NOTE | 2023-07-04 12:37 | ECG_ITS ---
Measurements Intervals [place] Rate: 106 P: HI: 0 QRS: 3 QRSD: 81 T: -3 QT: 310 QTc: 413 Interpretive Statements ATRIAL FIBRILLATION WITH RAPID VENTRICULAR RESPONSE EARLY PRECORDIAL R/S TRANSITION NONSPECIFIC T-WAVE ABNORMALITY- INFERIOR LEADS ABNORMAL ECG COMPARED TO ECG 06/29/2023 05:29:53 ATRIAL FIBRILLATION NOW PRESENT T-WAVE ABNORMALITY NOW PRESENT Electronically Signed On 07-05-2023 6:37:10 CDT by Raj Gomez D.O.
[2023-07-04 12:44] LABS: Basophils Absolute Auto 0.1 K/mm3 (0.0-0.1); Basophils Percent Auto 1.1 % (0.2-1.2); Eosinophils Absolute Auto 0.2 K/mm3 (0-0.3); Eosinophils Percent Auto 2.2 % (0-4.4); Hematocrit 41.3 % (42.0-52.0); Hemoglobin 13.7 g/dL (14.0-18.0); Immature Granulocyte Absolute 0.02 K/mm3 (0.00-0.031); Immature Granulocyte Percent A 0.3 % (0-0.5); Lymphocytes Absolute Auto 1.41 K/mm3 (0.9-3.2); Lymphocytes Percent Auto 19.4 % (18.3-44.2); Mean Corpuscular HGB Conc 33.2 g/dl (32-36); Mean Corpuscular Hemoglobin 31.4 pg (26-34); Mean Corpuscular Volume 94.7 fl (80-100); Mean Platelet Volume 10.6 fl (7.4-10.4); Monocytes Absolute Auto 0.7 K/mm3 (0.1-0.6); Monocytes Percent Auto 8.9 % (2.6-8.5); Neutrophils Percent Auto 68.1 % (45.5-73.1); Platelet Count Result 234 k/mm3 (150-375); Red Blood Count 4.36 M/mm3 (4.6-6.20); Red Cell Distribution Width 12.1 % (11.5-14.5); White Blood Count 7.3 K/mm3 (4.5-10.0)
[2023-07-04 13:06] LABS: Troponin I < 0.012 ng/mL (0.000-0.034)
--- NOTE | 2023-07-04 13:28 | ED.ARRPALP ---
HPI - Arrhythmia/Palpitations General Chief Complaint: Arrhythmia/Palpitations Stated Complaint: a fib Time Seen by Provider: 07/04/23 12:47 Source: patient Limitations: no limitations History of Present Illness HPI narrative: 77 years old white male came to the emergency room by ambulance complaining of irregular heartbeats. He denies any chest pain or shortness of breath or lightheadedness or dizziness or chest pain. Patient used to be on metoprolol 25 mg twice a day, had a recent diagnosis of atrial fibrillation and metoprolol increased to 75 mg once a day with Eliquis. Related Data Home Medications Medication Instructions Recorded Confirmed atorvastatin 10 mg tablet 40 mg PO DAILY 02/24/20 06/29/23 alprazolam 0.25 mg tablet 0.25 mg PO Q8H PRN Anxiety 06/29/23 06/29/23 Allergies Allergy/AdvReac Type Severity Reaction Status Date / Time erythromycin base Allergy Unknown rapid Verified 06/29/23 05:49 heartbeat epinephrine Allergy Heart rythm Verified 06/29/23 05:49 Review of Systems Review of Systems: All systems reviewed & are unremarkable except as noted in HPI and below PMFSH Past Medical History Medical History HLD (hyperlipidemia) HTN (hypertension) Hypogonadism Hypothyroidism (acquired) Interstitial lung disease Pulsatile tinnitus Sinusitis Surgical History Surgical History S/P surgery on nasal septum Family History Family History Other Carcinoma of colon Cerebrovascular accident Diabetes mellitus Family history of arthritis Family history of blood dyscrasia Family history of cardiovascular disease Family history of congestive heart failure Family history of glaucoma Family history of lung disease Hypertension Social History Social History Social History: Patient currently lives by himself. Patient has no children. He is full code. He nominates Romi Scott be the individual who would make decisions for him if he is unable. Lifelong nonsmoker. No alcohol or drug use. Caffeine-none Smoking status: Never smoker Alcohol intake: never Substance use: never Lack of Transportation: No Lack of Food: Never True Current Housing: I Have Housing Concerned About Future Housing: No Difficulty Paying Gas/Electric Bills: No Difficulty Paying for Meds: No Currently Unemployed: No Education: High School Diploma/GED Difficulty w/ Childcare or Family Care: No Living arrangements: alone Occupation/Education: retired Additional occupation/education comments: [employer] Gender identity (if verbalized by the patient): Male Sexual Orientation (if Verbalized by the Patient): Straight or Heterosexual Spiritual care concerns: No Agree to blood products: Yes Exam Narrative: General appearance: Well-developed, well-nourished Skin: Normal color Head: Normocephalic, nontraumatic Eyes: Clear conjunctiva ENT: Oropharynx normal, ears normal, nose normal Neck: Supple, nontender Chest and respiratory: Airway patent, no respiratory distress, no accessory muscle use Heart: Tachycardia, irregular irregularity Abdomen: Soft, nontender, no organomegaly, quiet bowel sounds Vascular: Normal peripheral pulses, normal capillary refill. Musculoskeletal: Normal range of motion, nontender back Neurologic: Alert and oriented ?3, MEDICATION AIDE is normal as tested, no gross motor deficit Course Reevaluation(s) Reevaluation #1: Patient received Lopressor 5 mg every 5 minutes x 2, with slight i
[2023-07-04] MEDS: METOPROLOL TARTRATE INJ 5 MG/5 ML VIAL IV PUSH ×3 (13:41→13:51)
[2023-07-04] MEDS: dilTIAZem 100 MG/100 ML 100 MG/100 ML BAG IV CONT (15:30)
[2023-07-04] MEDS: dilTIAZem HCl INJ 25 MG/5 ML VIAL 10 MG IV PUSH (15:30)
[2023-07-04 15:45] LABS: Troponin I < 0.012 ng/mL (0.000-0.034)
--- NOTE | 2023-07-04 15:54 | ECG_ITS ---
Measurements Intervals [place] Rate: 70 P: AL: 0 QRS: 10 QRSD: 89 T: 9 QT: 378 QTc: 409 Interpretive Statements ATRIAL FIBRILLATION ABNORMAL ECG COMPARED TO ECG 07/04/2023 12:24:11 HEART RATE HAS DECREASED Electronically Signed On 07-05-2023 6:46:07 CDT by Raj Gomez D.O.
--- NOTE | 2023-12-03 | ECG_ITS ---
Measurements Intervals [place] Rate: 71 P: 7 [place]: 192 QRS: -6 QRSD: 90 T: 17 QT: 391 QTc: 425 Interpretive Statements SINUS RHYTHM MODERATE VOLTAGE CRITERIA FOR LVH, CONSIDER NORMAL VARIANT [MEETS CRITERIA IN ONE OF: R(aVL), S(V1), R(V5), R(V5/V6)+S(V1)] NONSPECIFIC T-WAVE ABNORMALITY BORDERLINE ECG COMPARED TO ECG 12/03/2023 17:54:40 NO DIFFERENCE Electronically Signed On 12-04-2023 12:54:06 CDT by Sage Perez M.D.
== END 2023-07-04 16:56 | disposition home or self-care (01) ==
PROVIDERS: Emergency Medicine; Emergency Provider Emergency Medicine; PCP Family Medicine
DX: I48.91 Unspecified atrial fibrillation (principal); E78.5 Hyperlipidemia, unspecified; I10 Essential (primary) hypertension; E03.9 Hypothyroidism, unspecified
CPT/HCPCS: 36415; 84484; 85025; 93005; 96365; 96375; 99284

== ENCOUNTER 2023-12-03 17:42 | Emergency (ER) | payer MEDICARE, MEDICAID, SELFPAY ==
[2023-12-03] VITALS (8 sets, daily range): BP systolic 103–151; BP diastolic 78–90; PULSE 70–93; RESP 16–20; TEMP 36.4; O2SAT 95–100
--- NOTE | ~2023-12-03 | XR_ITS ---
EXAMINATION: XR chest 2V DATE: 12/03/2023 19:07 INDICATION: Right shoulder pain. TECHNIQUE: Frontal and lateral views of the chest were obtained. COMPARISON: Chest single view 06/29/2023 FINDINGS: There is a chronic diffuse interstitial pattern in the lungs. No pleural effusion or pneumo thorax. The heart size is normal. IMPRESSION: 1. Stable chronic interstitial lung disease. Reviewed, dictated and finalized at location E.
--- NOTE | ~2023-12-03 | XR_ITS ---
EXAMINATION: XR shoulder RT min 2V DATE: 12/04/2023 00:20 INDICATION: Neck and shoulder pain. TECHNIQUE: 3 views of right shoulder were obtained. COMPARISON: Chest single view 06/29/2023 FINDINGS: Bone alignment is normal. No fracture. There is mild osteoarthritis of glenohumeral joint a nd severe osteoarthritis of acromioclavicular joint. Again seen is chronic interstitial lung disease. IMPRESSION: 1. Polyarticular osteoarthritis. 2. Chronic interstitial lung disease. Reviewed, dictated and finalized at location A.
--- NOTE | 2023-12-03 17:48 | ECG_ITS ---
Measurements Intervals [place] Rate: 87 P: 3 OR: 171 QRS: -6 QRSD: 84 T: 28 QT: 276 QTc: 334 Interpretive Statements SINUS RHYTHM LEFT VENTRICULAR HYPERTROPHY WITH ST-T CHANGE NONSPECIFIC T-WAVE ABNORMALITY- ANTEROLAT/INF LEADS BASELINE ARTIFACT- I, II, AVR, AVF, V1, V4-V6 BORDERLINE ECG COMPARED TO ECG 07/04/2023 15:58:16 SINUS RHYTHM NOW PRESENT T-WAVE ABNORMALITY NOW PRESENT Electronically Signed On 12-03-2023 19:59:47 CDT by Raj Gomez D.O.
[2023-12-03 18:09] LABS: Basophils Absolute Auto 0.1 K/mm3 (0.0-0.1); Basophils Percent Auto 0.5 % (0.2-1.2); Eosinophils Absolute Auto 0.1 K/mm3 (0-0.3); Eosinophils Percent Auto 0.6 % (0-4.4); Hematocrit 41.8 % (42.0-52.0); Hemoglobin 14.4 g/dL (14.0-18.0); Immature Granulocyte Absolute 0.04 K/mm3 (0.00-0.031); Immature Granulocyte Percent A 0.3 % (0-0.5); Lymphocytes Absolute Auto 1.91 K/mm3 (0.9-3.2); Lymphocytes Percent Auto 16.3 % (18.3-44.2); Mean Corpuscular HGB Conc 34.4 g/dl (32-36); Mean Corpuscular Volume 92.9 fl (80-100); Mean Platelet Volume 10.2 fl (7.4-10.4); Monocytes Absolute Auto 1.2 K/mm3 (0.1-0.6); Monocytes Percent Auto 10.1 % (2.6-8.5); Neutrophils Absolute Auto 8.5 K/mm3 (1.3-6.7); Neutrophils Percent Auto 72.2 % (45.5-73.1); Platelet Count Result 224 k/mm3 (150-375); Red Cell Distribution Width 11.9 % (11.5-14.5); White Blood Count 11.7 K/mm3 (4.5-10.0)
[2023-12-03 18:22] LABS: Alanine Aminotransferase 20 U/L (6-50); Albumin Level 4.6 g/dL (3.5-5.1); Alkaline Phosphatase 64 U/L (38-126); Anion Gap 10 mmol/L (4-12); Aspartate Amino Transferase 28 U/L (17-59); Bilirubin,Total 2.1 mg/dL (0.2-1.3); Blood Urea Nitrogen 25 mg/dL (9-20); Calcium 9.1 mg/dL (8.4-10.2); Carbon Dioxide 24 mmol/L (22-30); Chloride 102 mmol/L (98-107); Estimated CRCL calculation 57 ml/min; Estimated Glomerular Filt Rate > 60; Glucose 154 mg/dL (65-110); Potassium 3.8 mmol/L (3.4-5.0); Sodium 136 mmol/L (137-145)
[2023-12-03 22:27] LABS: Appearance Urine Clear (Clear); Bacteria Urine None Seen /hpf; Bilirubin Urine Negative (Negative); Blood Urine Negative (Negative); Color Urine Yellow (Yellow); Glucose Urine UA Negative (Negative); Ketones Urine 1+ mg/dL (Negative); Leukocyte Esterase Ur Negative LEU/UL (Negative); Nitrate Urine Negative (Negative); Non Pathogenic Casts 0-2; Protein Urine Trace mg/dL (Negative); RBC Urine 0-2 /hpf (0-2); Specific Grav Ur 1.026 (1.001-1.035); Squamous Epithelial Cell Urine None Seen /hpf (Few); Urobilinogen Urine 0.2 mg/dL (<2.0); WBC Urine 0-5 /hpf (0-3)
[2023-12-03 22:59] LABS: Add Urine Microscopic? YES
[2023-12-03] MEDS: ACETAMINOPHEN 500 MG TABLET 1000 MG PO (23:40)
[2023-12-03] MEDS: methocarbamoL 750 MG TABLET PO (23:41)
--- NOTE | 2023-12-04 01:57 | ED.GENADULT ---
HPI - General Adult General Chief complaint: Unspecified Stated complaint: neck and shoulder pain Time Seen by Provider: 12/03/23 23:09 History of Present Illness HPI narrative: This is a 77-year-old male presenting with shoulder pain. His right shoulder hurting him for the last week. It is worse with movement. Patient states the pain has been improving and is pain-free at the time my evaluation. Patient denies any falls, fevers chills chest pain difficulty breathing or abdominal pain. He has not take anything for symptoms. Related Data Home Medications Medication Instructions Recorded Confirmed atorvastatin 10 mg tablet 40 mg PO DAILY 02/24/20 08/09/23 alprazolam 0.25 mg tablet 0.25 mg PO Q8H PRN Anxiety 06/29/23 08/09/23 metoprolol succinate 25 mg 75 mg PO Q12H 08/09/23 08/09/23 tablet,extended release 24 hr metoprolol tartrate 25 mg tablet 25 mg PO ONCE PRN 08/09/23 08/09/23 Allergies Allergy/AdvReac Type Severity Reaction Status Date / Time erythromycin base Allergy Unknown rapid Verified 12/03/23 23:06 heartbeat epinephrine Allergy Heart rythm Verified 12/03/23 23:06 [facility] Past Medical History Medical History HLD (hyperlipidemia) HTN (hypertension) Hypogonadism Hypothyroidism (acquired) Interstitial lung disease Pulsatile tinnitus Sinusitis Surgical History Surgical History S/P surgery on nasal septum Family History Family History Other Carcinoma of colon Cerebrovascular accident Diabetes mellitus Family history of arthritis Family history of blood dyscrasia Family history of cardiovascular disease Family history of congestive heart failure Family history of glaucoma Family history of lung disease Hypertension Social History Social History Social History: Patient currently lives by himself. Patient has no children. He is full code. He nominates Romi Scott be the individual who would make decisions for him if he is unable. Lifelong nonsmoker. No alcohol or drug use. Caffeine-none Smoking status: Never smoker Alcohol intake: never Substance use: never Lack of Transportation: No Lack of Food: Never True Current Housing: I Have Housing Concerned About Future Housing: No Difficulty Paying Gas/Electric Bills: No Difficulty Paying for Meds: No Currently Unemployed: No Education: High School Diploma/GED Difficulty w/ Childcare or Family Care: No Living arrangements: alone Occupation/Education: retired Additional occupation/education comments: [employer] Gender identity (if verbalized by the patient): Male Sexual Orientation (if Verbalized by the Patient): Straight or Heterosexual Spiritual care concerns: No Agree to blood products: Yes Exam Narrative: APPEARANCE: No apparent distress. Head: atraumatic. EYES: EOMI, NOSE: Atraumatic NECK: Trachea midline RESPIRATORY: No increased rate of breathing clear to auscultation CARDIOVASCULAR: RRR, no peripheral edema ABDOMINAL: Non-distended soft nontender MUSCULOSKELETAl: Focal exam of the right shoulder revealed no overlying skin changes. No areas of tenderness. No pain active or passive movement. Arm is neurovascularly intact. NEURO: Alert. Moving 4/4 extremities SKIN:: Warm, dry. Normal color PSYCHIATRIC: Normal affect Course Vital Signs Vital signs: Vital Signs Temperature 97.6 F 12/03/23 17:45 Pulse Rate 93 12/03/23 17:45 Respiratory Rate 20 12/03/23 17:45 Blood Pressure 144/79 H 12/03/23 17:45 Pulse Oximetry 95 12/03/23 17:45 Oxygen Delivery Room Air 12/03/23 17:45 Temperature 97.6 F 12/03/23 17:45 Pulse Rate 71 12/03/23 23:18 Respiratory Rate 16 12/03/23 23:18 Blood Pressure 103/90 12/03/23 21:31 Pulse Oximetry 9
[2023-12-04 02:21] VITALS: BP 110/56; PULSE 87; RESP 18; O2SAT 96
== END 2023-12-04 02:30 | disposition home or self-care (01) ==
PROVIDERS: Student in an Organized Health Care Education/Training Program; Emergency Provider Emergency Medicine; PCP Family Medicine
DX: M25.511 Pain in right shoulder (principal); E78.5 Hyperlipidemia, unspecified; I10 Essential (primary) hypertension; E03.9 Hypothyroidism, unspecified
CPT/HCPCS: 36415; 71046; 73030; 80053; 81001; 85025; 93005; 99284; A9270

== ENCOUNTER 2024-10-16 09:39 | Outpatient (CLI) | payer MEDICARE, MEDICAID, SELFPAY ==
--- NOTE | ~2024-10-16 | US_ITS ---
Limited Abdominal Sonogram: Real-time sonographic imaging of the right upper quadrant was performed. Clinical History: Jaundice Findings: The liver appears normal with no evidence of mass lesion or bile duct dilatation. Main por valarie vein demonstrates normal direction of flow. The gallbladder is well distended, and appears normal with no evidence of gallstone or wall thickening. The common bile duct measures 3 mm. The visualize d pancreas, aorta, and IVC are unremarkable. Impression: No significant abnormality seen. Reviewed, dictated and finalized at location M. IC LICENSED PRACTICAL NURSE Impression: No significant abnormality seen.
--- OUTSIDE RECORDS SUMMARY | 2024-10-16 10:45 | XMS_ITS | Clinical Summary ---
Author Organization [facility] [place] [address] Address [address] [place] [address] Care Team Providers Care Watch Crystal Grinder Name Role Phone Scot Navarrete MD Primary Care Provider [phone] Allergies Active Allergy Reactions Criticality Noted Date Comments Epinephrine Palpitations Low 05/10/2024 Erythromycin Nausea only Low 02/08/2019 Medications Eliquis 5 mg tablet as needed 3 Active atorvastatin (LIPITOR) 40 mg tablet Take 1 tablet (40 mg total) by mouth daily Active azelastine (ASTELIN) 137 mcg (0.1 %) nasal spray USE 1 SPRAY(S) IN EACH NOSTRIL 1 TO 2 TIMES DAILY . APPOINTMENT REQUIRED FOR FUTURE REFILLS 3 Active ALPRAZolam (XANAX) 0.25 mg tablet alprazolam 0.25 mg tablet TAKE 1 TABLET BY MOUTH EVERY 8 HOURS NEEDED Active levothyroxine (SYNTHROID) 88 mcg tablet Take 1 tablet (88 mcg total) by mouth daily Active Toprol XL 25 mg extended release tablet as needed 0 Active testosterone (ANDROGEL) 1 % (25 mg/2.5gram) gel in packet APPLY 1 PACKET TOPICALLY ONCE DAILY Active flecainide (TAMBOCOR) 100 mg tablet Take 3 tablets (300 mg total) by mouth once as needed (For atrial fibrillation, pill in the pocket ) for up to 40 doses 40 tablet 4 Active losartan (COZAAR) 50 mg tabletIndication s:Essential hypertension Take 1 tablet by mouth once daily 90 tablet 5 Active Active Problems Problem Noted Date Diagnosed Date Hyperlipidemia 05/10/2024 Essential hypertension 11/03/2023 Paroxysmal atrial fibrillation (CMS/HCC) 024 Resolved Problems Problem Noted Date Diagnosed Date Resolved Date Anticoagulation management encounter 11/03/2023 05/10/2024 Social History Tobacco Use Types Packs/Day Years Used Date Smoking Tobacco: Never Tobacco Cessation:Counseling Given: Not Answered Personal Safety Answer Date Recorded Getting School Help Needed Not on file 10/28 Sex and Gender Information Value Date Recorded Sex Assigned at Not on file 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 Gender Identity Not on file Sexual Orientation Not on file Obstetrics History Last Filed Vital Signs Vital Sign Reading Time Taken Comments Blood Pressure 126/80 05/10/2024 10:13 AM CDT Pulse 72 05/10/2024 10:13 AM CDT Temperature - - Respiratory Rate - - Oxygen Saturation 97% 05/10/2024 10:13 AM CDT Inhaled Oxygen Concentration - - Weight 84 kg (185 lb 1.6 oz) 05/10/2024 10:13 AM CDT Height 172.7 cm (5' 8 ) 05/10/2024 10:13 AM CDT Body Mass Index 28.14 05/10/2024 10:13 AM CDT Plan of Treatment Health Maintenance Due Date Last Done Comments Depression Screening 1945 Fall Risk Assessment 1945 DTaP/Tdap/Td Vaccine (1 - Tdap) 12/23/1954 Hepatitis B Screening 12/23/1961 Zoster Vaccine (1 of 2) 12/23/1993 Well Visit 65+ 12/23/2008 Pneumococcal vaccine 65+ (2 of 2 - PPSV23 or PCV20) 12/16/2016 12/17/2015 Covid-19 Vaccine ( - 2023-2 5 season) 2024 07/23/2021, 11/23/2020, 10/22/2020 Influenza Vaccine (#1) 2024 , 05/29/2020, 05/04/2019, Additional history exists Insurance MEDICARE [place] MEDICARE IDPA Care Teams Watch Crystal Grinder Relationship Specialty Start Date End Date Scot Navarrete MD [address] [place] [address] [place] [address] [facility] - General 07/05/11
--- OUTSIDE RECORDS SUMMARY | 2024-10-16 10:45 | XMS_ITS | Clinical Summary ---
Author Organization [facility] Address [address] [place] [address] Care Team Providers Care Music Library Assistant Name Role Phone Unavailable Primary Care Provider Unavailabl e Social History Tobacco Use Types Packs/Day Years Used Date Smoking Tobacco: Never Assessed Sex and Gender Information Value Date Recorded Sex Assigned at Not on file Legal Sex Male 4:27 PM CDT Gender Identity Not on file Sexual Orientation Not on file Plan of Treatment Health Maintenance Due Date Last Done Comments DTaP, Tdap and Td Vaccines ( 1 - Tdap) 12/23/1962 Zoster Vaccines (1 of 2) 12/23/1993 Pneumococcal Vaccine: 65+ Ye ars (1 of 1 - PCV) 12/23/2008 RSV Immunization or 60+ Years (1 - 1-dose 75+ series) 12/23/2018 COVID-19 Vaccine (2023-2 5 season) 2024 Influenza Adult (#1) 2024 Meningococcal B Vaccine Aged Out No l onger eligible based on patient's age to complete this topic Meningococcal Vaccine Aged Out No ruthy carlos eligible based on patient's age to complete this topic RSV Immunizations Under 20 Months Aged Out No longer eligible based on patient's age to complete this topic
--- OUTSIDE RECORDS SUMMARY | 2024-10-16 10:45 | XMS_ITS | Referral Summary ---
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 Address: [address] [address] [place] [address] IDPA Care Teams Hand Launderer Relationship Specialty Start Date End Date Scot Navarrete MD [facility] [place] [address] PCP - General 07/05/11
--- OUTSIDE RECORDS SUMMARY | 2024-10-16 10:45 | XMS_ITS | CONTINUITY OF CARE DOCUMENT ---
Author Name evelin waters Address Unknown Organization [facility] Address [address] [address] [place] [address] Phone [phone] Care Team Providers Care Ict Teacher Name Role Phone Иван MCCAIN, Holden Unavailable SAURAV MCCAIN, MUSTAPHA Unavailable [phone] MUSTAPHA MG MD Unavailable [phone] PROBLEMS Condition Status Date Provider Notes CLAUDICATION, INTERMITTENT-01/10 SERG NEG active ? 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 HYPERCHOLESTEROLEMIA;NEW RX 2009 active Carlito Oates MD ENCOUNTERS Date Type Provider Location Encounter Diag nosis - In-person encounter Office Visit Holden Oates MD [facility] HYPERCHOLESTEROLEMIA;NEW RX 2008HTN-01/10 SERG EF 60B12 DEFICIENCYDIABETES MELLITUSANGINA PECTORIS;WILL CATHCLAUDICATION, INTERMITTENT-01/10 SERG NEG VITAL SIGNS Date Observation Value Provider weight E&M 198 [lb_av] Jp Lazar height E&M 68 [in_i] Jp [place] pulse rate 74 /min Jp [place] oxygen saturation, oximetry 97 % Jp [place] respiratory rate E&M 16 /min Jp [place] blood pressure, diastolic 75 mm[Hg] Aaliyah seph [place] blood pressure, systolic 115 mm[Hg] Tay eph [place] ALLERGIES Allergy Name Onset Date Reaction Criticality Status ERYTHROMYCIN High Criticality active HISTORY OF MEDICATION USE Medication Status Instructions Dates Provider Indications Com ments ASPIRIN 325 MG ORAL TABLET active one tab daily Holden Oates MD NITROGLYCERIN SUBL active as needed Jp Lazar LIPITOR 10 MG ORAL TABLET active 1 tablet by mouth daily Jp Lazar TOPROL XL 25 MG ORAL TABLET EXTENDED RELEASE 24 HOUR active 1 tablet by mouth daily Jp Lazar SOCIAL HISTORY Date Observation Value Provider number of children No children Holden cha MD social history E&M L wilbert alone E thnicity: Holden Oates MD social history reviewed E&M reviewed Holden Oates MD physical exercise, f requency, days per week no [employer]Logic caffeine use, averag e drinks per day no [employer]Logic alcohol use, average drinks per day none LinkLogic smoking status Non-smoker [employer] MENTAL STATUS Date Observation Value Provider assessment of judgme nt and insight E&M Alert and oriented to time, place and person. Mood and affect are normal. Holden Oates MD INSURANCE PROVIDERS Payer name Policy type / Coverage type [facility] Medicaid 1 [id number] [place] MED[place] Medicare [id number] TREATMENT PLAN Date Name Performer chest pain & hyperte nsion, will cath: H is updated medication list for this problem includes: Toprol Xl 25 Mg Tb24 (Metoprolol succinate) ..... 1 tablet by mouth daily Nitroglycerin Subl (Nitroglycerin subl) ..... As needed Aspirin 325 Mg Tabs (Aspirin) ..... One tab daily Orders: S tress Test - Echo ([id number]) BP today: 115/75 Prior BP: / () Holden Oates MD chest pain & hyperte nsion, will cath: H is updated medication list for this problem includes: Aspirin 325 Mg Tabs (Aspirin) ..... One tab daily BP today: 115/75 Prior BP: / () Holden Oates MD chest pain & hypertension, will cath Holden Oates MD chest pain & hyperte nsion, will cath: H is updated medication list for this problem includes: Toprol Xl 25 Mg Tb24 (Metoprolol succinate) ..... 1 tablet by mouth daily Aspirin 325 Mg Tabs (Aspirin) ..... One tab daily Orders: S tress Test - Echo ([id number]) E KG ([id number]) C ardiac Cath - GC (*) X -Ray, Chest, PA & Lateral ([id number]) BP today: 115/75 Holden Oates MD chest pain & hyperte nsion, will cath: H is updated medication list for this problem includes: Lipitor 10 Mg Tabs (Atorvastatin calcium) ..... 1 tablet by mouth daily BP today: 115/75 Prior BP: / () Holden Oates MD Date Name Complete Echo Arterial Duplex Lowe r Extremity Bilateral X-Ray, Chest, PA & L ateral Cardiac Cath - HISTORY OF PROCEDURES Procedure Date Procedure Name Provider Procedure Notes S tatus EKG Holden Oates MD complete d
--- OUTSIDE RECORDS SUMMARY | 2024-10-16 10:45 | XMS_ITS | Continuity of Care Document ---
Author Organization [facility] Address [address] [place] [address] [address] [place] [address] Phone Care Team Providers Care Mental Measurements Teacher Name Role Phone Berta Reid Unavailable Unavailable Procedures Procedure Date Eye Exam & Treatment Refraction Eye Exam, New Patient Refraction Advance Directives Directive Yes / No Effective Date File Name No Information Encounters Encounter Description Practice Location Reason(s) For Visit Diagnoses Date Provider Providers Copied on Encounter [facility], [address] [place] [address] [address], [place], [place], [id number], tel:[phone] [facility] No Information 2-200 9 Jeanette Barragan [address], [place], [place], [facility], . tel:[phone] [facility], [address] [place] [address] [address], [place], [place], [id number], tel:[phone] [facility] No Information 3-200 8 Jeanette Barragan [address] , [address], [place], [place], [facility], [place]. tel:[phone] Family History Family Member Type Diagnosis Age At Onset No Information Payers Payer name Insurance type Covered libertarian ID Authoriza tion(s) [place] [id number] Social History Type Description Quantity Date Captured Comments Sex Male Smoking Status No Information Chief Complaint And Reason For Visit No Information Reason For Referral Reason For Referral No Information History Of Present Illness Encounter Date Complaint History Of Prese nt Illness No Information Functional Status Date Functional Assessmen t No Information Instructions Date Instruction Additional Infor mation No Information Assessments Type Assessment Date No Information Patient Care Teams Name Effective Dates (start - stop) Status Members No Information
--- OUTSIDE RECORDS SUMMARY | 2024-10-16 10:45 | XMS_ITS | Data Portability ---
Author Organization [facility] [employer], Main Office Address [address] [place] [address] Assessment No assessment recorded. Plan of Treatment Reminders Order Date Submit Date Provider Last Modified By Organization Details Last Modified Time Details Appointments Follow Up 15 2024 09:30A WONG Cruz Not available Not available Not available Lab CMP, serum or plasma 2022 023 [facility] (Lab), [address] [place], [address], 03/14/2023 14:44:46 urinalysi s, dipstick 2022 023 [facility] [address], [place], [address], 03/14/2023 10:19:06 TSH, serum or plasma 2022 023 [facility] (Lab), [address] [place], [address], 03/14/2023 15:08:51 CBC w/ auto diff 2022 023 [facility] (Lab), [address] [place], [address], 03/14/2023 12:40:58 PSA, serum or plasma [email or web address] [address] [place], [address], 01/23/2024 08:48:10 glycohemo globin, total, blood - Attn Ramiro [address] Add On Lab Orders, [address] [place], [address], 03/01/2024 09:14:19 vitamin D, 25-hydrox y, total, serum 2023 024 [facility] (Lab), [address] [place], [address], 01/22/2024 23:11:50 vitamin B12 + folate, serum or blood 2023 024 [facility] (Lab), [address] [place], [address], 01/23/2024 08:48:10 lipid panel, serum 2023 024 [facility] (Lab), [address] [place], [address], 01/16/2024 22:47:09 CBC w/ auto diff 2023 024 [facility] (Lab), [address] [place], [address], 01/23/2024 08:48:10 TSH, serum or plasma 2023 024 [facility] (Lab), [address] [place], [address], 01/16/2024 22:47:09 CMP, serum or plasma 2023 024 [facility] (Lab), [address] [place], [address], 01/16/2024 22:47:09 vitamin D, 25-hydrox y, total, serum [address] (Lab), [address] [place], [address], 09/23/2024 09:58:34 vitamin B12 + folate, serum or blood [address] (Lab), [address] [place], [address], 09/23/2024 09:58:34 Referral cardiolog ist referral 2022 023 [email or web address] Valdo Porras, [address], [address], [place], [address], 08/11/2023 11:41:04 Procedures None recorded. Surgeries None recorded. Imaging None recorded. Medication Orders guaifenes in 400 mg tablet 2023 024 [email or web address] [facility] [place], [address], 07/16/2024 14:19:25 Vitamin D3 25 mcg (1,000 unit) capsule 2023 024 [email or web address] 00 [facility], [address] [place], [address], 08/07/2024 15:45:36 cyanocoba rafy (vit B-12) 1,000 mcg sublingua l tablet 2023 024 JESSE [facility] [address] [place], [address], 07/16/2024 14:32:36 Patient TargetsNo targets recorded. Patient Instructions Encounter Date Encounter Id Patient Instructions Last Modified By Organization Details Last Modified Time 07/16/2024 [id number] recheck BP here free in 7 days [email or web address] Not available 08/07/2024 15:46:58 Reason for Referral Stock Buyer Referral for Pa roxysmal atrial fibrillation Referring Physician: Scot Navarrete, Family Medicine, Encounter Date: 07/12/2023 Results Created Date Observation Date Name Description Value Unit Range Abnormal Flag Note LastModifiedBy Organization Detail LastModifiedTime 08/02/20 22 08/02/2022 COMPR EHENS BEBO METAB OLIC PANEL sodium 141 mmol/ L 137-14 5 Not Available [facility] (Lab) [address] [place], [address], 08/02/2022 20:51:10 08/02/20 22 08/02/2022 COMPR EHENS BEBO METAB OLIC PANEL potassium 4.2 mmol/ L 3.5-5. 1 Not Available [facility] (Lab) [address] [facility] [place], [address], 08/02/2022 20:51:10 08/02/20 22 08/02/2022 COMPR EHENS BEBO METAB OLIC PANEL chloride 106 mmol/ L 98-107 Not Available [facility] (Lab) [address] [place], [address], 08/02/2022 20:51:10 08/02/20 22 08/02/2022 COMPR EHENS BEBO METAB OLIC PANEL carbon dioxide 25 mmol/ L 22-30 Not Available [facility] (Lab) [address] [place], [address], 08/02/2022 20:51:10 08/02/20 22 08/02/2022 COMPR EHENS BEBO METAB OLIC PANEL anion gap 14.2 mmol/ L 14-22 Not Available [facility] (Lab) [address] [place], [address], 08/02/2022 20:51:10 08/02/20 22 08/02/2022 COMPR EHENS BEBO METAB OLIC PANEL glucose 94 mg/dL 70-99 Not Available [facility] (Lab) [address] [place], [address], 08/02/2022 20:51:10 08/02/20 22 08/02/2022 COMPR EHENS BEBO METAB OLIC PANEL BUN 25 mg/dL 8-19 high Not Available [facility] (Lab) [address] [place], [address], 08/02/2022 20:51:10 08/02/20 22 08/02/2022 COMPR EHENS BEBO METAB OLIC PANEL creatinine 1.05 mg/dL 0.66-1 .25 Not Available [facility] (Lab) [address] [place], [address], 08/02/2022 20:51:10 08/02/20 22 08/02/2022 COMPR EHENS BEBO METAB OLIC PANEL GFR >60 Refer ence Range : [place] GFR Healt hy Adult : >60 mL/mi n/1.7 3 m2 Chron ic Kidne y Disea se: 15-60 mL/mi n/1.7 3 m2 Kidne y Failu re: <15/m L/min /1.73 m2 www.n iddk. nih.g ov The MDRD study equat ion has not been valid ated in child jena <18 years of age; pregn ant women ; the elder ly >85 years of age; or in some racia l or ethni c subgr oups, such as Hispa nics. Outsi de the valid ated ellie eters , estim ated GFR is less accur ate, requi ring clini aba judgm ent on a case- by-ca se basis . Clini aba inter preta tion for other races and ages must be made by the clini valerie. The MDRD study equat ion has not been valid ated for the evalu ation of serum creat inine relat ed to nutri allie l statu s or medic ation usage . For perso ns <18 years of age, a pedia tric GFR calcu lator is avail able on the [employer] websi te: https ://sanjay collier.pamela jackson/pr katerin sheltonal s/kdo qi/gf r_cal culat or Not Available [facility] (Lab) [address] [place], [address], 08/02/2022 20:51:10 08/02/20 22 08/02/2022 COMPR EHENS BEBO METAB OLIC PANEL alkaline phosphatase 54 U/L 38-126 Not Available [facility] (Lab) [address] [place], [address], 08/02/2022 20:51:10 08/02/20 22 08/02/2022 COMPR EHENS BEBO METAB OLIC PANEL alanine aminotransfe rase 32 U/L 0-50 Not Available [facility] (Lab) [address] [place], [address], 08/02/2022 20:51:10 08/02/20 22 08/02/2022 COMPR EHENS BEBO METAB OLIC PANEL aspartate aminotransfe rase 37 U/L 15-46 Not Available [facility] (Lab) [address] [place], [address], 08/02/2022 20:51:10 08/02/20 22 08/02/2022 COMPR EHENS BEBO METAB OLIC PANEL bilirubin, total 2.10 mg/dL 0.20-1 .30 high Not Available [facility] (Lab) [address] [place], [address], 08/02/2022 20:51:10 08/02/20 22 08/02/2022 COMPR EHENS BEBO METAB OLIC PANEL calcium 9.2 mg/dL 8.4-10 .2 Not Available [facility] (Lab) [address] [place], [address], 08/02/2022 20:51:10 08/02/20 22 08/02/2022 COMPR EHENS BEBO METAB OLIC PANEL total protein 7.7 g/dL 6.3-8. 2 Not Available [facility] (Lab) [address] [place], [address], 08/02/2022 20:51:10 08/02/20 22 08/02/2022 COMPR EHENS BEBO METAB OLIC PANEL albumin 4.5 g/dL 3.0-4. 4 high Not Available [facility] (Lab) [address] [place], [address], 08/02/2022 20:51:10 08/02/20 22 08/02/2022 COMPR EHENS BEBO METAB OLIC PANEL globulin 3.2 g/dL 2.6-4. 2 Not Available [facility] (Lab) [address] [place], [address], 08/02/2022 20:51:10 08/02/20 22 08/02/2022 COMPR EHENS BEBO METAB OLIC PANEL A/G ratio 1.4 ratio 1.0-2. 0 Not Available [facility] (Lab) [address] [place], [address], 08/02/2022 20:51:10 08/02/20 22 08/02/2022 LIPID PANEL cholesterol 127 mg/dL 140-19 9 low NIH RAINA NSUS RECOM MENDA TION FOR ABRAM STERO L: ADULT CHILD LOW RISK: <200 <170 BORDE RLINE : <200- 239 ----- HIGH RISK: >240 >200 Not Available [facility] (Lab) [address] [place], [address], 08/02/2022 20:51:05 08/02/20 22 08/02/2022 LIPID PANEL triglyceride s 89 mg/dL 0-150 NIH RAINA NSUS REPOR T RECOM MENDA TION FOR TRIGL YCERI SHANON: ADULT CHILD LOW RISK: <150 ----- BODER LINE: 150-1 99 ----- HIGH RISK: >200 ----- Not Available [facility] (Lab) [address] [place], [address], 08/02/2022 20:51:05 08/02/20 22 08/02/2022 LIPID PANEL HDL cholesterol 51 mg/dL 40- Not Available [facility] (Lab) [address] [place], [address], 08/02/2022 20:51:05 08/02/20 22 08/02/2022 LIPID PANEL LDL cholesterol, calculated 58 mg/dL 0-130 NIH RAINA NSUS REPOR T RECOM MENDA TIONS FOR LDL: ADULT CHILD LOW RISK <130 <110 (OPTI MAL LDL) <100 ----- BORDE RLINE : 130-1 59 ----- HIGH RISK: >160 >130 A TRIGL YCERI DE RESUL T >400 INVAL IDATE S THE CALCU LATIO N FOR LDL FRACT IONAT ION - THE LDL RESUL T WILL NOT BE REPOR TANIYA. Not Available [facility] (Lab) [address] [place], [address], 08/02/2022 20:51:05 03/14/20 23 03/14/2023 CBC/C OMPLE TE BLD COUNT W/DIF F white blood cells 8.1 x10'3 /uL 4.2-10 .8 Not Available [facility] (Lab) [address] [place], [address], 03/14/2023 12:40:58 03/14/20 23 03/14/2023 CBC/C OMPLE TE BLD COUNT W/DIF F red blood cells 4.50 x10'6 /uL 4.10-5 .80 Not Available [facility] (Lab) [address] [place], [address], 03/14/2023 12:40:58 03/14/20 23 03/14/2023 CBC/C OMPLE TE BLD COUNT W/DIF F hemoglobin 14.4 g/dL 13.2-1 7.0 Not Available [facility] (Lab) [address] [place], [address], 03/14/2023 12:40:58 03/14/20 23 03/14/2023 CBC/C OMPLE TE BLD COUNT W/DIF F hematocrit 42.3 % 39.3-5 0.0 Not Available [facility] (Lab) [address] [place], [address], 03/14/2023 12:40:58 03/14/20 23 03/14/2023 CBC/C OMPLE TE BLD COUNT W/DIF F mean red cell volume 94.0 fL 80.0-9 7.0 Not Available [facility] (Lab) [address] [place], [address], 03/14/2023 12:40:58 03/14/20 23 03/14/2023 CBC/C OMPLE TE BLD COUNT W/DIF F mean red cell hemoglobin 32.0 pg 27.0-3 3.0 Not Available [facility] (Lab) [address] [facility] [place], [address], 03/14/2023 12:40:58 03/14/20 23 03/14/2023 CBC/C OMPLE TE BLD COUNT W/DIF F mean RBC HGB concentratio n 34.0 g/dL 31.0-3 6.0 Not Available [facility] (Lab) [address] [place], [address], 03/14/2023 12:40:58 03/14/20 23 03/14/2023 CBC/C OMPLE TE BLD COUNT W/DIF F red cell distribution width 12.1 % 11.8-1 5.5 Not Available [facility] (Lab) [address] [place], [address], 03/14/2023 12:40:58 03/14/20 23 03/14/2023 CBC/C OMPLE TE BLD COUNT W/DIF F platelets 231 x10'3 /uL 150-40 0 Not Available [facility] (Lab) [address] [place], [address], 03/14/2023 12:40:58 03/14/20 23 03/14/2023 CBC/C OMPLE TE BLD COUNT W/DIF F mean platelet volume 11.0 fL 9.0-12 .4 Not Available [facility] (Lab) [address] [place], [address], 03/14/2023 12:40:58 03/14/20 23 03/14/2023 CBC/C OMPLE TE BLD COUNT W/DIF F neutrophils 59.3 % 39.0-7 2.0 Not Available [facility] (Lab) [address] [place], [address], 03/14/2023 12:40:58 03/14/20 23 03/14/2023 CBC/C OMPLE TE BLD COUNT W/DIF F lymphocytes 24.7 % 16.0-4 7.0 Not Available [facility] (Lab) [address] [place], [address], 03/14/2023 12:40:58 03/14/20 23 03/14/2023 CBC/C OMPLE TE BLD COUNT W/DIF F monocytes 11.9 % 5.0-12 .0 Not Available [facility] (Lab) [address] [place], [address], 03/14/2023 12:40:58 03/14/20 23 03/14/2023 CBC/C OMPLE TE BLD COUNT W/DIF F eosinophils 2.8 % 1.0-7. 0 Not Available [facility] (Lab) [address] [place], [address], 03/14/2023 12:40:58 03/14/20 23 03/14/2023 CBC/C OMPLE TE BLD COUNT W/DIF F basophils 0.9 % 0.0-2. 0 Not Available [facility] (Lab) [address] [place], [address], 03/14/2023 12:40:58 03/14/20 23 03/14/2023 CBC/C OMPLE TE BLD COUNT W/DIF F immature granulocytes 0.4 % 0.00-0 .50 Not Available [facility] (Lab) [address] [place], [address], 03/14/2023 12:40:58 03/14/2003/14/2023 CBC/C OMPLE TE BLD COUNT W/DIF F neutrophils, absolute count 4.83 x10'3 /uL 1.5-8. 0 Not Available [facility] (Lab) [address] [place], [address], 03/14/2023 12:40:58 03/14/20 23 03/14/2023 CBC/C OMPLE TE BLD COUNT W/DIF F lymphocytes, absolute count 2.01 x10'3 /uL 1.07-3 .43 Not Available [facility] (Lab) [address] [place], [address], 03/14/2023 12:40:58 03/14/20 23 03/14/2023 CBC/C OMPLE TE BLD COUNT W/DIF F monocytes, absolute count 0.97 x10'3 /uL 0.29-0 .99 Not Available [facility] (Lab) [address] [place], [address], 03/14/2023 12:40:58 03/14/20 23 03/14/2023 CBC/C OMPLE TE BLD COUNT W/DIF F eosinophils, absolute count 0.23 x10'3 /uL 0.02-0 .53 Not Available [facility] (Lab) [address] [place], [address], 03/14/2023 12:40:58 03/14/20 23 03/14/2023 CBC/C OMPLE TE BLD COUNT W/DIF F basophils, absolute count 0.07 x10'3 /uL 0.01-0 .08 Not Available [facility] (Lab) [address] [place], [address], 03/14/2023 12:40:58 03/14/20 23 03/14/2023 CBC/C OMPLE TE BLD COUNT W/DIF F immature granulocytes ,absolute 0.03 x10'3 /uL 0.00-0 .05 Not Available [facility] (Lab) [address] [place], [address], 03/14/2023 12:40:58 03/14/20 23 03/14/2023 CBC/C OMPLE TE BLD COUNT W/DIF F nucleated red blood cells 0.0 % -0 Not Available [facility] (Lab) [address] [place], [address], 03/14/2023 12:40:58 03/14/20 23 03/14/2023 CBC/C OMPLE TE BLD COUNT W/DIF F NRBC# 0.00 x10'3 /uL Not Available [facility] (Lab) [address] [place], [address], 03/14/2023 12:40:58 03/14/20 23 03/14/2023 COMPR EHENS BEBO METAB OLIC PANEL sodium 140 mmol/ L 137-14 5 Not Available [facility] (Lab) [address] [place], [address], 03/14/2023 14:44:46 03/14/20 23 03/14/2023 COMPR EHENS BEBO METAB OLIC PANEL potassium 4.0 mmol/ L 3.5-5. 1 Not Available [facility] (Lab) [address] [place], [address], 03/14/2023 14:44:46 03/14/20 23 03/14/2023 COMPR EHENS BEBO METAB OLIC PANEL chloride 99 mmol/ L 98-107 Not Available [facility] (Lab) [address] [place], [address], 03/14/2023 14:44:46 03/14/20 23 03/14/2023 COMPR EHENS BEBO METAB OLIC PANEL carbon dioxide 30 mmol/ L 22-30 Not Available [facility] (Lab) [address] [place], [address], 03/14/2023 14:44:46 03/14/20 23 03/14/2023 COMPR EHENS BEBO METAB OLIC PANEL anion gap 15.0 mmol/ L 14-22 Not Available [facility] (Lab) [address] [place], [address], 03/14/2023 14:44:46 03/14/20 23 03/14/2023 COMPR EHENS BEBO METAB OLIC PANEL glucose 98 mg/dL 70-99 Not Available [facility] (Lab) [address] [place], [address], 03/14/2023 14:44:46 03/14/20 23 03/14/2023 COMPR EHENS BEBO METAB OLIC PANEL BUN 16 mg/dL 8-19 Not Available [facility] (Lab) [address] [place], [address], 03/14/2023 14:44:46 03/14/20 23 03/14/2023 COMPR EHENS BEBO METAB OLIC PANEL creatinine 1.01 mg/dL 0.66-1 .25 Not Available [facility] (Lab) [address] [place], [address], 03/14/2023 14:44:46 03/14/20 23 03/14/2023 COMPR EHENS BEBO METAB OLIC PANEL GFR >60 Refer ence Range : [place] GFR Healt hy Adult : >60 mL/mi n/1.7 3 m2 Chron ic Kidne y Disea se: 15-60 mL/mi n/1.7 3 m2 Kidne y Failu re: <15/m L/min /1.73 m2 www.n iddk. nih.g ov The MDRD study equat ion has not been valid ated in child jena <18 years of age; pregn ant women ; the elder ly >85 years of age; or in some racia l or ethni c subgr oups, such as Hispa nics. Outsi de the valid ated ellie eters , estim ated GFR is less accur ate, requi ring clini aba judgm ent on a case- by-ca se basis . Clini aba inter preta tion for other races and ages must be made by the clini valerie. The MDRD study equat ion has not been valid ated for the evalu ation of serum creat inine relat ed to nutri allie l statu s or medic ation usage . For perso ns <18 years of age, a pedia tric GFR calcu lator is avail able on the [facility] websi te: https ://sanjay w.kid amira.o rg/pr ofess ional s/kdo qi/gf r_cal culat or Not Available [facility] (Lab) [address] [place], [address], 03/14/2023 14:44:46 03/14/20 23 03/14/2023 COMPR EHENS BEBO METAB OLIC PANEL alkaline phosphatase 61 U/L 38-126 Not Available [facility] (Lab) [address] [place], [address], 03/14/2023 14:44:46 03/14/20 23 03/14/2023 COMPR EHENS BEBO METAB OLIC PANEL alanine aminotransfe rase 36 U/L 0-50 Not Available [facility] (Lab) [address] [place], [address], 03/14/2023 14:44:46 03/14/20 23 03/14/2023 COMPR EHENS BEBO METAB OLIC PANEL aspartate aminotransfe rase 39 U/L 15-46 Not Available [facility] (Lab) [address] [place], [address], 03/14/2023 14:44:46 03/14/20 23 03/14/2023 COMPR EHENS BEBO METAB OLIC PANEL bilirubin, total 1.70 mg/dL 0.20-1 .30 high Not Available [facility] (Lab) [address] [place], [address], 03/14/2023 14:44:46 03/14/20 23 03/14/2023 COMPR EHENS BEBO METAB OLIC PANEL calcium 9.3 mg/dL 8.4-10 .2 Not Available [facility] (Lab) [address] [place], [address], 03/14/2023 14:44:46 03/14/20 23 03/14/2023 COMPR EHENS BEBO METAB OLIC PANEL total protein 8.2 g/dL 6.3-8. 2 Not Available [facility] (Lab) [address] [place], [address], 03/14/2023 14:44:46 03/14/20 23 03/14/2023 COMPR EHENS BEBO METAB OLIC PANEL albumin 4.8 g/dL 3.0-4. 4 high Not Available [facility] (Lab) [address] [place], [address], 03/14/2023 14:44:46 03/14/20 23 03/14/2023 COMPR EHENS BEBO METAB OLIC PANEL globulin 3.4 g/dL 2.6-4. 2 Not Available [facility] (Lab) [address] [place], [address], 03/14/2023 14:44:46 03/14/20 23 03/14/2023 COMPR EHENS BEBO METAB OLIC PANEL A/G ratio 1.4 ratio 1.0-2. 0 Not Available [facility] (Lab) [address] [place], [address], 03/14/2023 14:44:46 03/14/20 23 03/14/2023 TSH thyroid-stim ulating hormone 2.890 uIU/m L 0.465- 4.680 Not Available [facility] (Lab) [address] [place], [address], 03/14/2023 15:08:51 03/14/20 23 03/14/2023 urina lysis , dipst ick Leukocytes (reference range: negative timur/ l) Negati ve Not Available [address], [place], [address], 03/14/2023 09:40:30 03/14/20 23 03/14/2023 urina lysis , dipst ick Nitrite (reference rage: negative mg/dl) negati ve Not Available [address], [place], [address], 03/14/2023 09:40:30 03/14/20 23 03/14/2023 urina lysis , dipst ick Urobilinogen (reference range: 0.2-1 mg/dl) 0.2 Not Available [address] [place], [place], [address], 03/14/2023 09:40:30 03/14/20 23 03/14/2023 urina lysis , dipst ick Protein (reference range: negative mg/dl) Negati ve Not Available [address], [place], [address], 03/14/2023 09:40:30 03/14/20 23 03/14/2023 urina lysis , dipst ick pH (reference range: 5-7) 6.0 Not Available [address], [place], [address], 03/14/2023 09:40:30 03/14/20 23 03/14/2023 urina lysis , dipst ick Blood (reference range: negative Kwabena/ l) Negati ve Not Available [address], [place], [address], 03/14/2023 09:40:30 03/14/20 23 03/14/2023 urina lysis , dipst ick Specific [place] (reference range: 1.005-1.030) 1.015 Not Available [address] [place], [place], [address], 03/14/2023 09:40:30 03/14/20 23 03/14/2023 urina lysis , dipst ick Ketone (reference range: negative mg/dl) Negati ve Not Available [address], [place], [address], 03/14/2023 09:40:30 03/14/20 23 03/14/2023 urina lysis , dipst ick Bilirubin (reference range: negative mg/dl) Negati ve Not Available [address] [place], [place], [address], 03/14/2023 09:40:30 03/14/20 23 03/14/2023 urina lysis , dipst ick Glucose (reference range: negative mg/dl) Negati ve Not Available [address], [place], [address], 03/14/2023 09:40:30 03/14/20 23 03/14/2023 urina lysis , dipst ick Appearance Clear Not Available [address] [place], [place], [address], 03/14/2023 09:40:30 03/14/20 23 03/14/2023 urina lysis , dipst ick Color Yellow Not Available [address], [place], [address], 03/14/2023 09:40:30 07/31/20 22 07/30/2022 XR, chest , 2 view No observ ation record ed. [id number] [facility] [address], [place], [address], 11/02/2022 08:30:58 07/31/20 22 07/31/2022 imagi ng/di agnos tic resul t No observ ation record ed. MIGRATION. [id number] [id number] [facility] [address], [place], [address], 11/02/2022 08:30:58 08/24/20 22 08/24/2022 US, echo ardio gram No observ ation record ed. [email or web address]. [id number] [facility] [address] [facility] [address], [place], [address], 11/02/2022 08:30:58 08/25/20 22 08/24/2022 US, echoc ardio gram No observ ation record ed. [id number] [facility] [address] [facility] [address], [place], [address], 11/02/2022 08:30:58 05/29/20 23 05/29/2023 US, renal No observ ation record ed. [email or web address] [place], [place] [id number] [facility] [address], [place], [address], 05/30/2023 09:23:23 06/29/20 23 06/29/2023 XR, chest , 2 view No observ ation record ed. [email or web address], [place], [address], 06/29/2023 12:57:56 06/29/20 23 06/29/2023 US, doppl er, venou s No observ ation record ed. [place] [id number] [facility] [address], [place], [address], 07/03/2023 12:25:47 06/29/20 23 06/29/2023 cardi ac stres s test No observ ation record ed. [address] [address], [place], [address], 07/03/2023 12:26:17 06/29/20 23 06/29/2023 cardi ac stres s test No observ ation record ed. [address] [address], [place], [address], 07/03/2023 12:29:02 06/30/20 23 06/30/2023 US, doppl er echoc ardio gram No observ ation record ed. [address] [address], [place], [address], 07/03/2023 12:30:44 12/03/19 24 12/03/2023 XR, chest No observ ation record ed. [address] [address], [place], [address], 12/05/2023 10:12:20 12/04/19 24 12/03/2023 XR, shoul magy, 2 or more view No observ ation record ed. [address] [address], [place], [address], 12/05/2023 10:44:36 12/07/19 24 12/03/2023 XR, chest No observ ation record ed. [address] [address], [place], [address], 12/07/2023 16:15:01 12/07/19 24 12/03/2023 XR, shoul magy No observ ation record ed. [address] [address], [place], [address], 12/07/2023 16:16:24 12/07/19 24 12/03/2023 XR, chest No observ ation record ed. [id number] [facility] [address], [place], [address], 12/08/2023 12:28:17 12/07/19 24 12/03/2023 XR, shoul magy No observ ation record ed. [address] [facility] [address], [place], [address], 12/08/2023 12:28:47 Result Notes None recorded. Problems Name Problem SNOMED Code Status Onset Date Resolution Date Notes Provider Name and Address Organization Details Recorded Time Pain in lower limb 92300355 Active Not Available [facility] 3 17:48:22 Abnormal testoster one 426102051 Active Not Available [facility] 3 17:48:22 Low back pain 995755409 Active Not Available [facility] 3 17:48:22 Hypertens bebo disorder 48612628 Active Not Available [facility] 3 17:48:22 Hypothyro idism 33217039 Completed Not Available [facility] 3 08:23:53 Hyperlipi demia 66094555 Active Not Available [facility] 3 17:48:22 Occult blood detected in feces 31318216 Active Not Available [facility] 3 17:48:22 Abnormal urine 233538161 Active 2022 Not Available [facility] 3 17:48:22 Blood urea outside reference range 178731295 Active 2022 Not Available [facility] 3 17:48:22 Fatigue 27266521 Active 2022 Not Available [facility] 3 17:48:22 Paroxysma l atrial fibrillat ion 511430900 Active 2022 Not Available [facility] 3 17:48:22 Essential hypertens ion 21938984 Active 2022 Not Available [facility] 3 17:48:22 Angina pectoris 369759556 Active 2023 WONG Barcenas [address] [place] [address], [facility] [address], [place], [address] , [facility] 4 21:48:47 Allergic rhinitis 95891644 Active 2023 WONG Barcenas [address], [place], [address] , [facility] 4 15:37:08 At increased risk of nutrition al deficit 041628909 Active 2023 WONG Barcenas [address], [place], [address] , [facility] [employer] [facility] [employer] [facility] 4 15:40:16 Screening for malignant neoplasm of prostate Active 2023 WONG Barcenas [address], [address], [place], [address] , [facility] [employer] [facility] [employer] [facility] 4 15:44:42 Taking multiple medicatio ns for chronic disease 05262426977 4108 Active 2023 WONG Barcenas [address], [address], [place], [address] , [employer] [facility] [employer] [facility] 4 09:21:33 Vitamin D below reference range 987554758 Active 2023 WONG Barcenas [address], [address], [place], [address] , [facility] [employer] [facility] [employer] [facility] 4 14:28:14 Serum vitamin B12 below reference range 025743303 Active 2023 WONG Barcenas [address], [place], [address] , [facility] [employer] [facility] [employer] [facility] 4 14:28:35 Problem Notes None recorded. Procedures Surgical History None recorded. Imaging Results Imaging Date Name Status LastModified by Organization Details LastModified Time 08/24/2022 US, echocardiogram completed MIGRATION .[id number] [facility] [address], [place], [address], 11/02/2022 08:30:58 08/24/2022 US, echocardiogram completed MIGRATION .[id number] 8257 [facility] [address], [place], [address], 11/02/2022 08:30:58 07/30/2022 XR, chest, 2 view completed MIGRATION. [id number] [address] [place] [address], [place], [address], 11/02/2022 08:30:58 07/31/2022 imaging/diagnostic result completed MIGRATION.[id number] [address] [place] [address] [address], [place], [address], 11/02/2022 08:30:58 05/29/2023 US, renal completed [address], [place], [address], 05/30/2023 09:23:23 06/29/2023 XR, chest, 2 view completed [address], [place], [address], 06/29/2023 12:57:56 06/29/2023 US, doppler, venous completed [address], [place], [address], 07/03/2023 12:25:47 06/29/2023 cardiac stress test completed [address], [place], [address], 07/03/2023 12:26:17 06/29/2023 cardiac stress test completed [address], [place], [address], 07/03/2023 12:29:02 06/30/2023 US, doppler echocardiogram completed [address], [place], [address], 07/03/2023 12:30:44 12/03/2023 XR, chest completed [address], [address], 12/05/2023 10:12:20 12/03/2023 XR, shoulder, 2 or more view completed [address] [place] [address], [address], 12/05/2023 10:44:36 12/03/2023 XR, chest completed [address], [address], 12/07/2023 16:15:01 12/03/2023 XR, shoulder completed [address], [address], 12/07/2023 16:16:24 12/03/2023 XR, chest completed [address], [address], 12/08/2023 12:28:17 12/03/2023 XR, shoulder completed [address] [place] [address], [address], 12/08/2023 12:28:47 Procedure Notes None recorded. Medical Equipment None Reported. Allergies Allergen ID Allergen Name Allergen Category Reaction Reaction Severity Criticality Documentation Date Start Date Code Code System Note Provider Name and Address Organization Details Recorded Time erythromy irena medicatio n irregular heart rate Not available Not available 11/02/2022 4053 Rx[facility] Not Available [facility] 3 08:30:46 54547 epinephri ne medicatio n Not available Not available Not available 07/12/2023 3992 RxNorm BREN Gal[place] [facility] 3 11:22:45 Medications Name Sig Start Date Stop Date Status Note LastModified by Organization Details LastModified Time losartan 50 mg tablet TAKE 1 TABLET BY MOUTH ONCE DAILY active Not Available Not Available No t Available atorvasta tin 40 mg tablet Take 1 tablet by mouth once daily active Not Available Not Available No t Available atorvasta tin 10 mg tablet Take 1 tablet every day by oral route. 04/06 completed Not Available Not Available Not Available penicilli n V potassium 500 mg tablet active Not Available Not Available Not Available acetamino phen 300 mg-codein e 30 mg tablet active Not Available Not Available Not Available sulfameth oxazole 800 mg-trimet hoprim 160 mg tablet TK 1 T PO Q 12 H 10/16 completed Not Available Not Available Not Available peg-elect rolyte solution 420 gram oral solution MIX AND DRINK UTD 10/12 completed Not Available Not Available Not Available amoxicill in 500 mg tablet TK 1 T PO TID 10/10 completed Not Available Not Available Not Available levothyro xine 75 mcg tablet TK 1 T PO QD 10/16 completed Not Available Not Available Not Available meloxicam 7.5 mg tablet TK 1 T PO QD WF 10/15 completed Not Available Not Available Not Available levothyro xine 88 mcg tablet TAKE 1 TABLET BY MOUTH ONCE DAILY active Not Available Not Available No t Available amoxicill in 875 mg tablet Take 1 tablet every 12 hours by oral route for 10 days. active Not Available Not Available No t Available alprazola m 0.25 mg tablet Take 1 tablet by mouth twice daily as needed active Not Available Not Available No t Available levothyro xine 50 mcg tablet TK 1 T PO D IN THE MORNING 10/15 completed Not Available Not Available Not Available losartan 25 mg tablet TAKE 1 TABLET BY MOUTH ONCE DAILY 01/15 completed Not Available Not Available Not Available flecainid e 100 mg tablet TAKE 3 TABLETS BY MOUTH ONCE DAILY NEEDED(F OR ATRIAL FIBRILLA TION, PILL IN THE POCKET) FOR UP TP 40 DOSES 07/16 completed Not Available Not Available Not Available nitroglyc montserrat 0.4 mg sublingua l tablet DISSOLVE ONE TABLET UNDER THE TONGUE EVERY 5 MINUTES NEEDED FOR CHEST PAIN. DO NOT EXCEED A TOTAL OF 3 DOSES IN 15 MINUTES active Not Available Not Available No t Available hydrocodo ne 5 mg-acetam inophen 500 mg tablet active Not Available Not Available Not Available cyanocoba rafy (vit B-12) 1,000 mcg sublingua l tablet Place 1 tablet twice a day by sublingu al route for 30 days. 2023 active Not Available Not Available Not Avai lable gabapenti n 100 mg capsule TK 1 C PO TID 10/12 completed Not Available Not Available Not Available metoprolo l succinate ER 25 mg tablet,ex tended release 24 hr TAKE 1 TABLET BY MOUTH THREE TIMES DAILY active Not Available Not Available No t Available azelastin e 137 mcg (0.1 %) nasal spray USE 1 SPRAY(S) IN EACH NOSTRIL 1 TO 2 TIMES DAILY . APPOINTM ENT REQUIRED FOR FUTURE REFILLS active Not Available Not Available No t Available methylpre dnisolone 4 mg tablets in a dose pack FPD 10/10 completed Not Available Not Available Not Available testoster one 1 % (25 mg/2.5 gram) transderm al gel packet APPLY 1 PACKET TOPICALL Y ONCE DAILY active Not Available Not Available No t Available SF 5000 Plus 1.1 % dental cream USE BID UTD 10/12 completed Not Available Not Available Not Available fluticaso ne propionat e 50 mcg/actua tion nasal spray,clare pension Use 2 spray(s) in each nostril once daily active Not Available Not Available No t Available ASA Buff (Mag Carb-Al Glyc) 325 mg tablet Take 1 tablet every day by oral route. 10/15 completed pt take 1/2 tab daily Not Available Not Available Not Available amoxicill in 875 mg-potass ium clavulana te 125 mg tablet TAKE 1 TABLET BY MOUTH EVERY 12 HOURS 08/02 completed Not Available Not Available Not Available Vitamin D3 25 mcg (1,000 unit) capsule Take 1 capsule every day by oral route with meal(s) for 30 days. 2023 active Not Available Not Available Not Avai lable guaifenes in 400 mg tablet Take 1 tablet twice a day by oral route as needed for 30 days, for mucus in nasal cavities . 07/16 completed Not Available Not Available Not Available olmesarta n 40 mg-hydroc hlorothia zide 25 mg tablet TAKE 1 TABLET BY MOUTH ONCE DAILY 01/15 completed Not Available Not Available Not Available metoprolo l tartrate 25 mg tablet Take 1 tablet 3 times a day by oral route for 90 days. 10/05 completed Not Available Not Available Not Available chlorhexi dine gluconate 0.12 % mouthwash RINSE WITH 5ML BY MOUTH TWICE A DAY. RINSE FOR 1 MINUTE THEN EXPECTOR ATE. active Not Available Not Available No t Available valsartan 320 mg-hydroc hlorothia zide 25 mg tablet TK 1 T PO QD 10/26 completed Not Available Not Available Not Available ProAir HFA 90 mcg/actua tion aerosol inhaler INL 2 PUFFS Q 4 H PRN active Not Available Not Available No t Available testoster one 50 mg/5 gram (1 %) transderm al gel CLAY 1 PACKET EXTERNAL LY TO SPECIFIC AREA OF SKIN D 08/02 completed Not Available Not Available Not Available Calcium 600 + D(3) 600 mg-10 mcg (400 unit) tablet Take 1 tablet twice a day by oral route. 10/26 completed Not Available Not Available Not Available Bystolic 5 mg tablet TAKE 1 TABLET BY MOUTH EVERY DAY 10/12 completed Not Available Not Available Not Available Multaq 400 mg tablet TAKE 1 TABLET BY MOUTH TWICE DAILY WITH MEALS 07/16 completed Not Available Not Available Not Available Prevnar 13 (PF) 0.5 mL intramusc ular syringe ADM 0.5ML IM UTD active Not Available Not Available No t Available testoster one 20.25 mg/1.25 gram per pump act.(1.62 %) transderm al gel APPLY ONE PUMP TO ONE UPPER ARM AND SHOULDER ONCE DAILY active Not Available Not Available No t Available Androderm 4 mg/24 hr transderm al 24 hour patch CLAY ONE PATH TO THE SKIN QD active Not Available Not Available No t Available PreviDent 5000 Booster Plus 1.1 % dental paste BRUSH EVERY EVENING DONT RINSE 10/26 completed Not Available Not Available Not Available Eliquis 5 mg tablet TAKE 1 TABLET BY MOUTH TWICE DAILY active stopped it , cardiolo gist sharon just take it when he has a fib Not Available Not Available Not Available Fluvirin 2925-3167 45 mcg (15 mcg x 3)/0.5 mL intramusc ular suspensio n ADM 0.5ML UTD active Not Available Not Available No t Available Fluvirin 0646-6762 45 mcg (15 mcg x 3)/0.5 mL intramusc ular suspensio n INJECT 0.5 ML INTRAMUS CULARLY DIRECTED . active Not Available Not Available No t Available Fluzone High-Dose 2014- (PF) 180 mcg/0.5 mL intramusc ular syringe active Not Available Not Available Not Available Fluzone High-Dose (PF) 180 mcg/0.5 mL intramusc ular syringe ADM 0.5ML IM UTD 10/15 completed Not Available Not Available Not Available Fluzone High-Dose 4045-3936 (PF) 180 mcg/0.5 mL intramusc ular syringe ADM 0.5ML IM UTD 10/15 completed Not Available Not Available Not Available Fluzone High-Dose 2018- (PF) 180 mcg/0.5 mL intramusc ular syringe ADM 0.5ML IM UTD 10/16 completed Not Available Not Available Not Available Fluad Quad 1360-7269 (65yr up)(PF) 60 mcg (15 mcg x 4)/0.5mL IM syringe ADMINIST ER 0.5ML IN THE MUSCLE DIRECTED 10/26 completed Not Available Not Available Not Available Vitals Date Recorded Body mass index (BMI) Body height Oxygen saturation Oxygen saturation in Arterial blood by Pulse oximetry Heart rate Body temperature Body weight Systolic blood pressure Diastolic blood pressure Provider Name and Address Organization Details Last Updated DateTime 3 29.3 kg/m2 172.72 cm 97 % 97 % 74 /min 96.8 [degF] 90532.3 3 g 120 mm[Hg] 70 mm[Hg] Not Available [employer] 3 08:20:15 Date Recorded Body height Body mass index (BMI) Body weight Body temperature Heart rate Oxygen saturation Oxygen saturation in Arterial blood by Pulse oximetry Systolic blood pressure Diastolic blood pressure Provider Name and Address Organization Details Last Updated DateTime 3 172.72 cm 29 kg/m2 75201.1 4 g 97.3 [degF] 77 /min 95 % 95 % 140 mm[Hg] 80 mm[Hg] ALEIDA Berg [employer] 3 09:34:48 Date Recorded Body height Body mass index (BMI) Body weight Body temperature Heart rate Oxygen saturation Oxygen saturation in Arterial blood by Pulse oximetry Systolic blood pressure Diastolic blood pressure Provider Name and Address Organization Details Last Updated DateTime 3 172.72 cm 27.7 kg/m2 69451.8 1 g 97 [degF] 79 /min 97 % 97 % 116 mm[Hg] 52 mm[Hg] Shelby Baker MA [employer] 3 11:24:36 Date Recorded Body height Body mass index (BMI) Body weight Body temperature Heart rate Oxygen saturation Oxygen saturation in Arterial blood by Pulse oximetry Respiratory rate Systolic blood pressure Diastolic blood pressure Provider Name and Address Organization Details Last Updated DateTime 4 172.72 cm 26.8 kg/m2 16565.2 6 g 97.4 [degF] 70 /min 98 % 98 % 16 /min 146 mm[Hg] 80 mm[Hg] Roxana Mitchell RN [facility] [employer] [facility] 4 15:30:29 Date Recorded Body height Body mass index (BMI) Body weight Body temperature Heart rate Oxygen saturation Oxygen saturation in Arterial blood by Pulse oximetry Systolic blood pressure Diastolic blood pressure Provider Name and Address Organization Details Last Updated DateTime 4 172.72 cm 27.4 kg/m2 18724.6 3 g 97.3 [degF] 73 /min 98 % 98 % 150 mm[Hg] 96 mm[Hg] Roxana Mitchell RN [facility] [employer] [facility] 4 14:21:38 Social History None recorded. Functional Status None recorded. Mental Status None recorded. Family History Nothing Reported. Medical History No medical history recorded. Immunizations Vaccine Type Date Status Note Provider Nam e and Address Organization Details Recorded Time Influenza, high-dose, trivalent, PF 06/08/2016 completed Not Available [facility] 2022 17:48:22 Past Encounters Encounter ID Performer Location Encounter Start Date Encounter Closed Date Diagnosis/Indication Diagnosis SNOMED-CT Code Diagnosis ICD10 Code Diagnosis Note [id number] [facility] [address] [place] [address] 08/02/2022 00:00:00 08/02/2022 20:47:59 [id number] Scot Navarrete MD [facility] [address] [place] [address] 03/14/2023 09:29:37 03/14/2023 10:44:50 Abnormal urine 523828714 R82.90 Blood urea outside reference range 739979593 R79.89 Fatigue 10911088 R53.83 [id number] Scot Navarrete MD [facility] [address] [place] [address] 07/12/2023 11:14:05 07/12/2023 11:41:12 Paroxysmal atrial fibrillation 006789327 I48.0 Continue eliquis. Essential hypertension 52380600 I10 Call for refills of olmasartan /hct. [id number] WONG Barcenas [facility] [address] [place] [address] 01/16/2024 15:11:22 01/16/2024 15:48:03 Essential hypertension 98011758 I10 Allergic rhinitis 777474 04 J30.9 Hyperlipidemia 90753102 E78.5 Hypertensive disorder 38 035350 I10 Paroxysmal atrial fibrillation 267761005 I48.0 At [facility] risk of nutritional deficit 296339925 Z91.89 Screening for malignant neoplasm of prostate 944243341 Z12.5 Taking mul tiple medications for chronic disease 0820281019 94289 Z79.261 [id number] WONG Barcenas [facility] [address] [place] [address] 07/16/2024 14:05:54 07/16/2024 14:42:07 Hyperlipidemia 05831006 E78.5 Essential hypertension 03132711 I10 Allergic rhinitis 193513 04 J30.9 Paroxysmal atrial fibrillation 691670640 I48.0 Vitamin D below reference range 169481646 E55.9 Serum ana min B12 below reference range 889724247 R79.89 Abnormal testosterone 13 6364367 R89.1 Health Concerns Section Related Observation LastModified by Organization Detai ls LastModified Time None Recorded Concern Status LastModified by Organization Details LastModified Time None Recorded Advance Directives Directive None Recorded Payers Encounter Date Sequence Insurance Name Policy Number Policy Weinberg Covered Member ID Weinberg Member ID Guarantor Name 03/14/2023 1 [place] Davey Echevarria [id number] Davey Echevarria 03/14/2023 2 [place] WHEN [place] OR MEDICARE REPLACEMENT PRIMARY) Davey Echevarria [id number] Davey B Best 07/12/2023 1 [place] Davey B Best [id number] Davey B Best 07/12/2023 2 [place] REPLACEMENT PRIMARY) Davey B Best [id number] Davey B Best 01/16/2024 1 [place] Davey B Best [id number] Davey B Best 01/16/2024 2 [place] REPLACEMENT PRIMARY) Davey B Best [id number] Davey B Best 07/16/2024 1 [place] Davey B Best [id number] Davey B Best 07/16/2024 2 [place] OR MEDIC[place] REPLACEMENT PRIMARY) Davey B Best [id number] Davey B Best Notes Date Note Type Note Provider Name and Address Organization Details Recorded Time 03/14/2023 text/html Here today c/o f oam in urine. Needs to find out what is causing it. This started about a month ago.Also has bags under eyes. This started about a year ago. He has no other complaints. Scot Navarrete MD [address], [address], [place], [address], [employer] 03/15/2023 05:59:44 07/12/2023 text/html Here today for f /u of hospitalization was in hospital x 2 days for AFib and several days later went back to ER. No further problems since 07/04/23.No problems now is kind of weak at times. He is on a blood thinner now Scot Navarrete MD [address], [address], [place], [address], [facility] 07/12/2023 13:43:30 01/16/2024 text/html mucus build up i n nose WONG Barcenas [address], [address], [place], [address], [employer] [facility] 02/23/2024 09:23:32 07/16/2024 text/html no changes WONG Barcenas [address], [place], [address], [place] [facility] 08/07/2024 15:49:06
== END 2024-10-16 09:40 | disposition home or self-care (01) ==
PROVIDERS: PCP Family Medicine; Visit Provider Internal Medicine Endocrinology, Diabetes & Metabolism
DX: R17 Unspecified jaundice (principal)
CPT/HCPCS: 76705